=== PATIENT | female | born 1950 | race Caucasian/White ===

== ENCOUNTER → 2017-04-18 | Outpatient (CLI) | payer MEDICARE, OTHER, SELFPAY | PROVIDERS: Visit Provider Family Medicine | DX: R94.5 Abnormal results of liver function studies (principal) | CPT/HCPCS: 76705 ==

== ENCOUNTER → 2017-05-04 09:09 | Outpatient (CLI) | payer MEDICARE, OTHER, SELFPAY ==
--- NOTE | 2017-05-04 09:14 | MM_ITS ---
MM Dig screening mamm BI w/CAD REASON: SCREENING ORDERING PHYSICIAN: Anusha Acevedo MD PATIENT AGE: 66 years MM Dig screening mamm BI w/CAD CAD Screening COMPARISON: Digital mammograms 05/14/2014 and 05/01/2013 INDICATION: There is a history of breast cancer patient's great aunt diagnosed after menopause. TECHNIQUE: Standard CC and MLO images were obtained. R2 CAD reviewed. FINDINGS: The breasts are composed primarily of fat with minimal fibroglandular densities in the upper outer quadrants bilaterally. There are stable small nodular densities in each breast. There are multiple benign-appearing calcifications right breast with a few benign-appearing calcifications left breast. There is no new or suspicious lesion in either breast and there are no suspicious microcalcifications. IMPRESSION: Fibrofatty parenchyma with no suspicious lesion seen recommend yearly follow-up. BI-RADS Category: 2 Benign Finding(s) RECOMMENDED FOLLOW-UP: 1YR - 1 YEAR FOLLOW-UP (A letter has been sent to the patient regarding results of the study.)
== END ==
PROVIDERS: Family Provider Family Medicine; PCP Family Medicine; Visit Provider Family Medicine
DX: Z12.31 Encounter for screening mammogram for malignant neoplasm of breast (principal)
CPT/HCPCS: 77067

== ENCOUNTER 2017-06-11 09:00 | Outpatient (RCR) | payer MEDICARE, OTHER, SELFPAY | END 2017-06-11 09:01 | disposition home or self-care (01) | LOC: PT 09:00 | PROVIDERS: Family Provider Family Medicine; PCP Family Medicine; Visit Provider Family Medicine | DX: M54.5 Low back pain (principal) | CPT/HCPCS: 97010; 97014; 97110; G0283 ==

== ENCOUNTER → 2019-01-31 16:11 | Outpatient (CLI) | payer MEDICARE, OTHER, SELFPAY ==
--- NOTE | 2019-01-31 16:19 | MM_ITS ---
PROCEDURE: MM DIG SCREENING MAMM BI W/CAD CLINICAL INDICATION: SCREENING There is no personal or family history of breast cancer COMPARISON: [facility] DIG MAMM-SCREEN SHIRA from 05/01/2013 [facility] DIG MAMM-SCREEN SHIRA from 05/14/2014 [facility] MM Dig screening mamm BI w/CAD from 05/04/2017 TECHNIQUE: Standard CC and MLO images were obtained. R2 CAD reviewed. FINDINGS: Scattered fibroglandular densities are seen throughout both breasts. Stable areas of asymmetric glandular tissue are seen in the outer quadrants of each breast. There is scattered multiple benign-appearing microcalcifications in each breast more numerous right than left. There is a stable asymmetric nodular density near the axillary tail right breast likely a low-lying node. There is no suspicious lesion and no suspicious microcalcifications. IMPRESSION: Fibrofatty parenchyma with no suspicious lesions seen BI-RAD Category: 2 Benign Finding(s) FOLLOW-UP: 1YR 1 Year Follow-up (A letter has been sent to the patient regarding results of the study.) Dictated by: Dr. Manohar Randall MD 02/07/2019 09:[address] Manohar Randall MD in [place] 02/07/2019 09:09
== END ==
PROVIDERS: PCP Family Medicine; Visit Provider Family Medicine
DX: Z12.31 Encounter for screening mammogram for malignant neoplasm of breast (principal)
CPT/HCPCS: 77067

== ENCOUNTER → 2020-08-17 13:48 | Outpatient (CLI) | payer MEDICARE, SELFPAY ==
--- NOTE | 2020-08-17 13:51 | MM_ITS ---
PROCEDURE: MM DIG SCREENING MAMM BI W/CAD Digital Breast Tomosynthesis Included CLINICAL INDICATION: SCREENING There is a history of breast cancer patient's paternal aunt. COMPARISON: MG [facility] DIG MAMM-SCREEN SHIRA from 05/14/2014 MG [facility] MM Dig screening mamm BI w/CAD from 05/04/2017 MG MM DIG SCREENING MAMM BI W/CAD from 01/31/2019 TECHNIQUE: Standard CC and MLO images and 3D Tomosynthesis was obtained. R2 CAD reviewed. FINDINGS: Scattered fibroglandular densities are seen in both breasts. There are scattered benign-appearing microcalcifications in each breast more numerous right left. There is a stable benign-appearing asymmetric density upper-outer quadrant right breast. Again noted are asymmetric glandular elements in the upper outer quadrant of each breast. There is no new or suspicious lesion in either breast and no suspicious microcalcifications. IMPRESSION: Fibrofatty parenchyma with no suspicious lesions seen BI-RAD Category: 2 Benign Finding(s) FOLLOW-UP: 1YR 1 Year Follow-up (A letter has been sent to the patient regarding results of the study.) Dictated by: Dr. Manohar Randall MD 08/18/2020 16:24 Dr. Manohar Randall MD in [place] 08/18/2020 16:24
== END ==
PROVIDERS: PCP Family Medicine; Visit Provider Family Medicine
DX: Z12.31 Encounter for screening mammogram for malignant neoplasm of breast (principal)
CPT/HCPCS: 77063; 77067

== ENCOUNTER → 2020-08-20 09:46 | Outpatient (CLI) | payer MEDICARE, OTHER, SELFPAY ==
--- NOTE | 2020-08-20 09:49 | XR_ITS ---
PROCEDURE: XR DEXA AXIAL SKELETON CLINICAL HISTORY: OSTEOPENIA COMPARISON: No exams were available for comparison FINDINGS: The right hip BMD is 0.952 with a T-score of 0.9. The left hip BMD is with a T-score of . The lumbar spine BMD is 1.618 with a T-score of 5.2. Radius 1/3 density is 0.593 grams/centimeters sq with a T-score of -1.7 IMPRESSION: This patient is considered osteopenic according to the World Health Organization criteria. Bone density is between 10 and 25 percent below young normal. Fracture risk is moderate. Treatment is advised. Based on these results a follow-up exam is recommended in 2 year. Dictated by: Cain Robert MD 08/21/2020 09:02 Cain Robert MD in [place] 08/21/2020 09:02
== END ==
PROVIDERS: PCP Family Medicine; Visit Provider Family Medicine
DX: M85.89 Other specified disorders of bone density and structure, multiple sites (principal)
CPT/HCPCS: 77080

== ENCOUNTER → 2020-10-04 10:08 | Outpatient (CLI) | payer MEDICARE, OTHER, SELFPAY ==
--- NOTE | 2020-10-04 10:17 | XR_ITS ---
PROCEDURE: XR HIP RT 2-3V W/PELVIS CLINICAL INDICATION: RT HIP PAIN COMPARISON: No exams were available for comparison FINDINGS: Mild osteoarthritic changes are involving the right hip. No fracture or dislocation. No lytic or blastic change. There has been a prior total left hip prosthesis placed with good alignment. Minimal vascular calcification noted. Incidental note made of a small os acetabulum on the right IMPRESSION: Mild osteoarthritic change of the right hip. Dictated by: Cain Robert MD 10/04/2020 12:01 Cain Robert MD in [place] 10/04/2020 12:01
== END ==
PROVIDERS: PCP Family Medicine; Visit Provider Family Medicine
DX: M25.551 Pain in right hip (principal)
CPT/HCPCS: 73502

== ENCOUNTER → 2021-02-11 09:26 | Outpatient (CLI) | payer MEDICARE, OTHER, SELFPAY ==
[2021-02-11 09:33] LABS: Adenovirus F 40/41, stool Not Detected (NotDetected); Astrovirus Not Detected (NotDetected); Campylobacter Not Detected (NotDetected); Clostridium Difficile A/B, PCR Not Detected (NotDetected); Cryptosporidium Not Detected (NotDetected); Cyclospora Cayetanesis Not Detected (NotDetected); Entamoeba histolytica Not Detected (NotDetected); Enteroaggregative E coli Not Detected (NotDetected); Enteropathogenic E coli Not Detected (NotDetected); Enterotoxigenic E coli Not Detected (NotDetected); Giardia lamblia Not Detected (NotDetected); Norovirus Not Detected (NotDetected); Plesimonas Shigalloides, PCR Not Detected (NotDetected); Rotavirus A Not Detected (NotDetected); Salmonella, PCR Not Detected (NotDetected); Sapovirus Not Detected (NotDetected); Shiga-like toxin E coli Not Detected (NotDetected); Shigella Enterovasive E coli Not Detected (NotDetected); Vibrio Cholerae Not Detected (NotDetected); Vibrio, PCR Not Detected (NotDetected); Yersinia Entercolitica, PCR Not Detected (NotDetected)
== END ==
PROVIDERS: Visit Provider Family Medicine
DX: R19.7 Diarrhea, unspecified (principal)
CPT/HCPCS: 87506

== ENCOUNTER 2021-02-22 07:03 | Emergency (ER) | payer MEDICARE, OTHER, SELFPAY ==
[2021-02-22 07:39] VITALS: BP 148/84; PULSE 89; RESP 17; TEMP 36.8; O2SAT 97; BMI 31.8
--- NOTE | 2021-02-22 09:32 | PC.NURSE ---
Assisted Dr with exam of rectum.
--- NOTE | 2021-02-22 09:32 | HMH.EDGENADL ---
ED Disposition Clinical Impression: Hemorrhoids Qualifiers: Hemorrhoid type: unspecified Qualified Code(s): K64.9 - Unspecified hemorrhoids Disposition: Home, Self-Care Condition on Discharge: Good Referrals: Vivian Gudino [Primary Care Provider] - Deangelo Mackey MD [Staff Physician] - - Critical Care Critical Care Time: No Attestation: On 02/22/21, the high probability of a clinically significant, sudden or life threatening deterioration of the following system(s) required my full and direct attention, intervention and personal management. The time I documented below is in addition to time spent performing reported procedures but includes the following listed in this critical care notation. Medical Decision Making - Medical Records Medical records reviewed: Yes: I reviewed the patient's medical records. - Gideon Inquiry Pt receiving controlled substance: No Vital Signs: 02/22/21 07:39 Temperature 98.3 F Temperature Source Oral Pulse Rate [Right Radial] 89 Respiratory Rate 17 Blood Pressure [Right Arm] 148/84 H Blood Pressure Mean [Right Arm] 105 Blood Pressure Source [Right Arm] Automatic Cuff Blood Pressure Position [Right Arm] Sitting 02 Sat by Pulse Oximetry 97 Oxygen Delivery Method Room Air Medical Decision Narrative: Patient is a 70-year-old female presents the ED today for anal bleeding. Patient is well-appearing on initial evaluation fully conversant GCS 15 with normal mental status. Patient does not take any blood thinners. Patient examined, has several rectal hemorrhoids, the largest of which has a small hematoma overlying, there is no active bleeding, on further examination there is no anal fissure, the largest hemorrhoid may have partial thrombosis, but is not completely thrombosed. There is no active bleeding, patient is otherwise stable, we can refer for outpatient surgical follow-up, patient requests follow-up with Dr. Mackey. Believe that there is any indication for laboratory or further imaging work-up at this time, as patient is abdomen is nontender, and she has an obvious source of bleeding, if patient is to have continued or severe bleeding or melanotic stools, I discussed with her that she needs to return. Patient given return precautions return to the ED with any new or worsening symptoms and is verbalized understanding with this plan. General Adult HPI - General Chief complaint: PAIN Stated complaint: hemorrhoid bleed Time Seen by Provider: 02/22/21 09:10 Mode of Arrival: Ambulatory Limitations: No Limitations Description of Symptoms (Recalled from ER Triage Doc. by RN): Pt stated that she has had diarrhea for a month. The last two days were the first time she has had a solid stool. She has been bleeding since sunday. She stated that it started very light, and has esculated to very heavy and clotted. She has a hx of hemorrhoids. - History of Present Illness HPI narrative: Patient is a 70-year-old female presents the ED today for evaluation of rectal bleeding. Patient states this has been present since Sunday, states that it was very mild at that time that she has had diarrhea recently and has been wiping frequently, and attributes this to the worsening of her hemorrhoids. Patient states she has had hemorrhoids before but has not had any issues with them in the past, has been told that she has an anal cyst, but is unclear of where it is, and has been told that there is nothing to do at this time. She has a history of diverticulitis with partial colon resection. - Related Data Home Medications Medication Instructions Recorded Confirmed Citalopram Hydrobromide 20 mg PO DAILY 02/22/21 02/22/21 [Citalopram 20mg Tablet] Fenofibrate 160 mg PO DAILY 02/22/21 02/22/21 Levothyroxine Sodium 100 mcg PO DAILY 02/22/21 02/22/21 [Levothyroxine] Montelukast Sodium [Singulair 10mg 10 mg PO DAILY 02/22/21 02/22/21 tablet] Simvastatin 40 mg PO DAILY 02/22/21
[2021-02-22 09:33] VITALS: BP 130/84; PULSE 96; RESP 17; TEMP 36.8; O2SAT 96
[2021-02-22 09:48] VITALS: BP 130/84; PULSE 78; RESP 17; TEMP 36.8; O2SAT 97
== END 2021-02-22 09:50 | disposition home or self-care (01) ==
PROVIDERS: Emergency Provider Student in an Organized Health Care Education/Training Program; PCP Family Medicine
DX: K64.9 Unspecified hemorrhoids (principal); I10 Essential (primary) hypertension; E78.5 Hyperlipidemia, unspecified
CPT/HCPCS: 99281

== ENCOUNTER 2021-11-21 08:30 | Emergency (ER) | payer MEDICARE, OTHER, SELFPAY ==
[2021-11-21] VITALS (13 sets, daily range): BP systolic 127–143; BP diastolic 68–104; PULSE 66–82; RESP 16–18; TEMP 36.7–36.9; O2SAT 94–98; BMI 33.1
--- NOTE | 2021-11-21 08:28 | ECG_ITS ---
APPROVED REPORT Exam: Resting ECG HR:80 bpm ECG Measurements Heart Rate 80 AXES MD 161 P 71 QRSd 83 QRS 47 QT 388 T 67 QTc 425 Conclusion SINUS RHYTHM NORMAL ECG UNCONFIRMED REPORT Electronically signed by : Khanh Villalobos MD 11/22/2021 21:09:44
--- NOTE | 2021-11-21 08:39 | XR_ITS ---
FINAL REPORT CLINICAL HISTORY: chest pain FINDINGS: PA and lateral views of the chest were obtained. There is no prior exam for comparison. The cardiac and mediastinal silhouettes are within normal limits. There is granulomatous disease. There is no pleural effusion or pneumothorax. No acute osseous abnormality is identified. IMPRESSION: Granulomatous disease, otherwise no radiographic evidence of acute cardiac or pulmonary disease. Reviewed, Interpreted and Dictated by Valerie Corona MD Transcribed by Eliza Clements Authenticated and [facility]
--- NOTE | 2021-11-21 08:41 | PC.NURSE ---
ED MD AT BEDSIDE TO EVALUATE PT
--- NOTE | 2021-11-21 08:41 | PC.NURSE ---
[facility] at
--- NOTE | 2021-11-21 08:46 | PC.NURSE ---
pt to radiology
--- NOTE | 2021-11-21 08:48 | PC.NURSE ---
pt returned from radiology
[2021-11-21 08:53] LABS: Anion Gap 10.4 mEq/L (5-15); Blood Urea Nitrogen 13 mg/dl (7-17); Calcium 9.6 mg/dl (8.4-10.2); Carbon Dioxide 26 mmol/L (22.0-30.0); Chloride 108 mmol/L (98-107); Creatinine Clearance Estimated 69 mL/min (50-200); Estimated Glomerular Filt Rate 62 ml/min (>60); GFR (African American) 75 ML/MIN (>60); Glucose 102 mg/dl (74-100); Potassium 4.4 mmoL/L (3.5-5.1); Sodium 140 mmol/L (136-145)
[2021-11-21 08:54] LABS: Basophils # 0.1 K/mm3 (0-0.2); Basophils % 0.8 % (0.1-2.0); Eosinophils # 0.1 K/mm3 (0.0-0.4); Eosinophils % 1.4 % (0.1-12.0); Hemoglobin 15.4 g/dL (12.2-16.2); Lymphocytes # 3.6 K/mm3 (0.7-4.5); Lymphocytes % 49.9 % (10-50); Mean Corpuscular HGB Conc 35.1 g/dL (31.8-35.4); Mean Corpuscular Hemoglobin 31.8 pg (27.0-31.2); Mean Corpuscular Volume 90.5 fl (81-99); Monocytes # 0.5 K/mm3 (0.1-1.0); Monocytes % 6.7 % (1.7-9.3); Neutrophils # 2.9 K/mm3 (1.8-7.8); Neutrophils % 41.1 % (37.0-80.0); Platelet Count 331 K/mm3 (142-424); Red Blood Count 4.86 M/mm3 (4.20-5.40); Red Cell Distribution Width 13.6 % (11.5-17.5); White Blood Count 7.2 K/mm3 (4.8-10.8)
[2021-11-21 09:07] LABS: Alanine Aminotransferase 31 U/L (12-78); Albumin Level 4.5 g/dl (3.5-5.0); Alkaline Phosphatase 51 U/L (38-126); Aspartate Amino Transferase 35 U/L (14-36); Bilirubin,Indirect 0.2 mg/dL (0.0-0.9); Bilirubin,Total 0.2 mg/dl (0.2-1.3); Bilirubin,Unconjugated 0.5 mg/dL (0.0-1.1); Lipase 178 U/L (23-300); Total Protein,Serum 7.6 g/dl (6.3-8.2)
--- NOTE | 2021-11-21 09:08 | HMH.EDCP ---
ED Disposition Clinical Impression: Chest pain Qualifiers: Chest pain type: unspecified Qualified Code(s): R07.9 - Chest pain, unspecified Reflux esophagitis Qualifiers: Esophagitis bleeding: without hemorrhage Qualified Code(s): K21.00 - Gastro-esophageal reflux disease with esophagitis, without bleeding Disposition: Home, Self-Care Condition on Discharge: Good Prescriptions: Famotidine [Pepcid 20mg Tablet] 20 mg PO BID 14 Days #28 tab Transmission Status: Received by [facility] #[id number] Referrals: Vivian Gudino [Primary Care Provider] - - Critical Care Critical Care Time: No Attestation: On 11/21/21, the high probability of a clinically significant, sudden or life threatening deterioration of the following system(s) required my full and direct attention, intervention and personal management. The time I documented below is in addition to time spent performing reported procedures but includes the following listed in this critical care notation. Medical Decision Making - Medical Records Medical records reviewed: Yes: I reviewed the patient's medical records. - Gideon Inquiry Pt receiving controlled substance: No Vital Signs: 11/21/21 08:30 11/21/21 08:34 11/21/21 08:57 Temperature 98.5 F Temperature Source Oral Pulse Rate 78 67 Pulse Rate [Left Radial] 82 Respiratory Rate 16 Blood Pressure 127/68 Blood Pressure [Right Arm] 138/71 Blood Pressure Mean 87 Blood Pressure Mean [Right Arm] 93 Blood Pressure Source Blood Pressure Source [Right Arm] Automatic Cuff Blood Pressure Position Blood Pressure Position [Right Arm] Sitting 02 Sat by Pulse Oximetry 97 96 98 Oxygen Delivery Method Room Air Room Air 11/21/21 09:27 11/21/21 09:57 11/21/21 10:27 Temperature Temperature Source Pulse Rate 69 71 66 Pulse Rate [Left Radial] Respiratory Rate Blood Pressure 138/84 134/73 128/83 Blood Pressure [Right Arm] Blood Pressure Mean 102 93 92 Blood Pressure Mean [Right Arm] Blood Pressure Source Blood Pressure Source [Right Arm] Blood Pressure Position Blood Pressure Position [Right Arm] 02 Sat by Pulse Oximetry 95 95 97 Oxygen Delivery Method 11/21/21 10:57 11/21/21 11:27 11/21/21 12:47 Temperature Temperature Source Pulse Rate 73 78 79 Pulse Rate [Left Radial] Respiratory Rate Blood Pressure 135/81 143/82 H 135/104 H Blood Pressure [Right Arm] Blood Pressure Mean 99 94 113 Blood Pressure Mean [Right Arm] Blood Pressure Source Blood Pressure Source [Right Arm] Blood Pressure Position Blood Pressure Position [Right Arm] 02 Sat by Pulse Oximetry 98 98 97 Oxygen Delivery Method 11/21/21 12:52 11/21/21 12:57 11/21/21 13:27 Temperature Temperature Source Pulse Rate 68 72 66 Pulse Rate [Left Radial] Respiratory Rate Blood Pressure 133/79 135/79 131/68 Blood Pressure [Right Arm] Blood Pressure Mean 109 106 91 Blood Pressure Mean [Right Arm] Blood Pressure Source Blood Pressure Source [Right Arm] Blood Pressure Position Blood Pressure Position [Right Arm] 02 Sat by Pulse Oximetry 97 96 94 L Oxygen Delivery Method 11/21/21 13:30 Temperature 98.0 F Temperature Source Oral Pulse Rate 66 Pulse Rate [Left Radial] Respiratory Rate 18 Blood Pressure 131/68 Blood Pressure [Right Arm] Blood Pressure Mean Blood Pressure Mean [Right Arm] Blood Pressure Source Automatic Cuff Blood Pressure Source [Right Arm] Blood Pressure Position Sitting Blood Pressure Position [Right Arm] 02 Sat by Pulse Oximetry Oxygen Delivery Method Room Air - Lab Data Lab Results 11/21/21 08:35: WBC 7.2, RBC 4.86, Hgb 15.4, Hct 44.0, MCV 90.5, MCH 31.8 H, MCHC 35.1, RDW 13.6, Plt Count 331, MPV 7.0 L, Neut % (Auto) 41.1, Lymph % (Auto) 49.9, Avery % (Auto) 6.7, Eos % (Auto) 1.4, Baso % (Auto) 0.8, Neut # (Auto) 2.9, Lymph # (Auto) 3.6, Avery # (Auto) 0.5, Eos # (Auto) 0.1,
[2021-11-21 09:09] LABS: Troponin I < 0.01 ng/ml (0.00-0.034)
--- NOTE | 2021-11-21 09:10 | PC.NURSE ---
rounded on pt, pt sitting up in bed, pt family at BS. Pt states no needs at this time. Will continue to monitor
--- NOTE | 2021-11-21 09:42 | PC.NURSE ---
rounded on pt,asked pt if she needed anything, pt stated nothing at this time.
--- NOTE | 2021-11-21 11:26 | PC.NURSE ---
lab called asking if they needed to draw the second troponin for pt, Updated lab that the second one needs to be drawn. asked if they needed to send someone from lab to collect, instructed yes that they did
--- NOTE | 2021-11-21 11:58 | PC.NURSE ---
pt ambulated to restroom at this time
[2021-11-21 12:30] LABS: Troponin I < 0.01 ng/ml (0.00-0.034)
--- NOTE | 2021-11-21 12:36 | PC.NURSE ---
family updated on poc
--- NOTE | 2021-11-21 13:23 | PC.NURSE ---
pt states that her chest pain has improved
== END 2021-11-21 13:35 | disposition home or self-care (01) ==
PROVIDERS: Emergency Provider Student in an Organized Health Care Education/Training Program; PCP Family Medicine
DX: R07.9 Chest pain, unspecified (principal); K21.00 Gastro-esophageal reflux disease with esophagitis, without bleeding; Z79.899 Other long term (current) drug therapy; Z88.2 Allergy status to sulfonamides; Z88.6 Allergy status to analgesic agent; Z88.5 Allergy status to narcotic agent; Z91.040 Latex allergy status
CPT/HCPCS: 71046; 80048; 80076; 83690; 84484; 85025; 93005; 99283

== ENCOUNTER → 2021-12-16 11:16 | Outpatient (CLI) | payer MEDICARE, OTHER, SELFPAY ==
--- NOTE | 2021-12-16 11:24 | XR_ITS ---
FINAL REPORT CLINICAL HISTORY: hip pain COMPARISON: October 04, 2020 FINDINGS: RIGHT HIP Two views of the right hip with an AP pelvis demonstrate no acute fracture or dislocation. There are severe degenerative changes of the right hip which has significantly progressed since the prior exam. The visualized bony structures are well aligned. No soft tissue abnormality is seen. There are postoperative changes from left hip arthroplasty. There are moderate and severe degenerative changes of the lower lumbar spine. IMPRESSION: Severe degenerative changes with no acute bony abnormality. Reviewed, Interpreted and Dictated by Deangelo Collins III, MD Transcribed by Aparna Marquez Authenticated and [facility]
--- NOTE | 2021-12-16 11:24 | XR_ITS ---
FINAL REPORT CLINICAL HISTORY: knee pain FINDINGS: RIGHT KNEE: Four views of the right knee obtained. There is no acute fracture or dislocation. There is mild degenerative change that is worse in the medial compartment. There is no soft tissue abnormality. IMPRESSION: Mild degenerative change with no acute bony abnormality. Reviewed, Interpreted and Dictated by Deangelo Collins III, MD Transcribed by Aparna Maqruez Authenticated and [facility]
== END ==
PROVIDERS: PCP Family Medicine; Visit Provider Orthopaedic Surgery
DX: M25.551 Pain in right hip; M25.561 Pain in right knee
CPT/HCPCS: 73502; 73564

== ENCOUNTER → 2022-01-13 06:47 | Outpatient (CLI) | payer MEDICARE, OTHER, SELFPAY ==
--- NOTE | 2022-01-13 06:48 | CA_ITS ---
APPROVED REPORT EXAM: Comprehensive 2D, Doppler, and color-flow Echocardiogram Special Education Teachers: Briana Evans CRT Ht: 5 ft 3 in Wt: 193lbs BSA: 1.90 BP: 151/66 mmHg Indications: Chest Pain, Shortness of Breath, Hyperlipidemia, Hypertension/HDD,gerd 2D Dimensions LVOT 2.13 cm (M/F) 1.5-2.5 LA Volume 30.40 mL LA Volume Index 16.00 mL/m2 (M/F) 16-34 M-Mode Dimensions RVDd 2.63 cm (0.9-2.6) LA Diam 3.43 cm (1.9-4.0) LVDd 4.27 cm (3.5-5.7) Ao Diam 3.59 cm (2.0-3.7) LVDs 2.88 cm (3.5-5.7) IVSd 1.85 cm (0.6-1.1) PWd 0.61 cm (0.6-1.1) EF (Teich) 61.20% FS 32.60% EDV (Teich) 81.70 mL TAPSE 2.34 (<1.7) ESV (Teich) 31.70 mL LV Diastology E Decel Time 263.00 (160-240 msec) E/A Ratio 0.70 MED E' 4.90 (< 7 cm/sec) MED A' 9.50 cm/s E'/MED E' Ratio 11.90 (>14) LAT E' 8.10 (<10 cm/sec) LAT A' 7.00 cm/s E/LAT E' Ratio 7.20 (>14) Aortic Valve AO Peak GR. 6.50 mmHg Mitral Valve MV A Velocity 84.00 (40-130 cm/s) E/A Ratio 0.70 MV Decel. Time 263.00 (160-240 ms) Pulmonary Valve PV Peak Velocity 164.00 (50-150 cm/s) Tricuspid Valve TR P. Velocity 173.00 cm/s RAP Estimate 10.00 mmHg RVSP 21.90 mmHg Left Ventricle Left atrium is mildly enlarged, left ventricle is normal size, mild concentric left ventricular hypertrophy, estimated ejection fraction 55% with no regional wall motion abnormality, grade 1 diastolic dysfunction seen without tissue Doppler evidence of raise left atrial pressure. Right Ventricle Right atrium and right ventricle are normal size and contractility. Aortic Valve Aortic valve is minimally thickened and fibrosed there is no aortic stenosis or aortic insufficiency. Mitral Valve Mitral valve grossly normal, there is trace mitral regurgitation. Tricuspid Valve Tricuspid valve grossly normal, there is trace tricuspid regurgitation, tricuspid regurgitation jet velocity is inadequate for calculation of the right ventricular systolic pressure. Pulmonic Valve Pulmonic valve is poorly visualized. Great Vessels Aortic root is normal size. Inferior vena cava is normal 7 normal inspiratory collapse. Pericardium No significant pericardial effusion noted. Conclusion 1. Mildly enlarged left atrium, normal left ventricular size, mild concentric left ventricular hypertrophy, estimated ejection fraction 55% with no regional wall motion abnormality, grade 1 diastolic dysfunction seen without tissue Doppler evidence of raise left atrial pressure. 2. Trace mitral and tricuspid regurgitation. 3. No significant pericardial effusion noted. 4. Inferior vena cava is normal size with normal inspiratory collapse. Electronically signed by : Christopher Rogers MD 01/13/2022 09:59:47
--- NOTE | 2022-01-13 06:48 | NM_ITS ---
APPROVED REPORT Exam: Nuclear Stress Test Indication: HTN, HYPERLIPIDEMIA, FM HX., C.P. Patient Location: Outpatient Stress Tech: Rylie Martinez [place] Tech:SHELIA Sterling RT(R)(N) Ht: 5 ft 3 in Wt: 190 lbs Bra Size: 46DD HR: 68 bpm BP: 146/86 mmHg BSA: 1.89 m2 TID: 1.12 BMI: 33.6 History: HTN, HYPERLIPIDEMIA, FM HX., C.P. Procedure: Patient received a 0.4 mg of intravenous Lexiscan, resting heart rate 68 bpm, resting blood pressure 146/86 mmHg, with Lexiscan maximum heart rate achived was 105 bpm which is Less than 85 % of the maximum predicted heart rate and blood pressure was 168/91 mmHg. With Lexiscan, patient denied any complaint of chest pain. Electrocardiogram Resting electrocardiogram shows sinus rhythm nonspecific ST-T changes, with Lexiscan there is less than 1.[address] segment depression noted from the baseline EKG. The EKG portion of the Lexiscan is nondiagnostic. Cardiac Stress and Resting SPECT Images: Cardiac Stress and Resting SPECT images were obtained using technetium 99m Myoview 31.8 mCi stress and 10.49 mCi at rest. Gated SPECT analysis of segmental wall motion and calculation of the ejection fraction also done. Cardiac stress and rest SPECT images show a fixed defect anterior apically with normal contractility on gated SPECT is likely secondary to soft tissue attenuation, no reversible ischemia seen, computer derived ejection fraction is over 65% with no regional wall motion abnormality, right ventricle is normal size and contractility. Conclusion: 1. The EKG portion of the Lexiscan is nondiagnostic. 2. No scintigraphic evidence of reversible ischemia seen, computer derived ejection fraction is over 65% with no regional wall motion abnormality, right ventricle is normal size and contractility. 3. Likely normal Lexiscan Myoview study. Electronically signed by : Christopher Rogers MD 01/13/2022 10:58:01
--- NOTE | 2022-01-13 06:48 | CA_ITS ---
APPROVED REPORT Exam: Pharmacologic Technologist: Rylie Burton, Ht: 5 ft 3 in Wt: 192 lbs BSA: 1.90 m2 HR: 65 bpm BP: 146/86 mmHg Medical History Medications: Lisinopril,,,,, Levothyroxine,,,,, Simvastatin,,,,, Pantoprazole,,,,, Citalopram,,,,, FeNOfibrate,,,,, MonteKalast,,,,, Stress Test Details Test: LEXISCAN Reason for pharmacologic stress test: physical limitation. HR Resting HR: 68 bpm Max Heart Rate (APMHR): 148.709305 bpm Max HR Achieved: 106 bpm Target HR (85% APMHR): 125.357242 bpm % of APMHR: 71.62 Recovery HR: 79 bpm BP Resting BP: 146.0/86.0 mmHg Max BP: 168.0/91.0 mmHg Recovery BP: 159.0/79.0 mmHg ECG Resting ECG: SR Clinical Exercise duration: 04:00 min Highest Stage Achieved: Exercise capacity: 1.0 METs Stress ECG Conclusion Symptoms: weakness with Lexiscan. No CP or SOA. Arrhythmias/Ectopy: None. ST-T Changes: <1.5mm ST segment depression. Test Summary REST 12:20 . . 68 . 146/ 86 . . Stage 1 01:00 . . 105 . . . . Stage 2 01:00 . . 95 . 168/ 91 . . Stage 3 01:00 . . 88 . 144/ 80 . . Stage 4 01:00 . . 88 . 147/ 83 . Stop exercise at 04:00 RECOVERY 01:00 . . 81 . . . . RECOVERY 02:00 . . 76 . 144/ 76 . . RECOVERY 02:33 . . 79 . 159/ 79 . . Electronically signed by : Christopher Rogers MD 01/13/2022 10:54:55
== END ==
PROVIDERS: PCP Family Medicine; Visit Provider Nurse Practitioner Family
DX: E78.5 Hyperlipidemia, unspecified (principal); I10 Essential (primary) hypertension; K21.9 Gastro-esophageal reflux disease without esophagitis; R07.9 Chest pain, unspecified; R06.00 Dyspnea, unspecified
CPT/HCPCS: 78452; 93017; 93306; A9502; J2785

== ENCOUNTER → 2022-01-30 09:34 | Outpatient (CLI) | payer MEDICARE, OTHER, SELFPAY | PROVIDERS: PCP Family Medicine; Visit Provider Surgery | DX: Z01.812 Encounter for preprocedural laboratory examination (principal); Z20.822 Contact with and (suspected) exposure to COVID-19; Z13.810 Encounter for screening for upper gastrointestinal disorder | CPT/HCPCS: C9803; U0003; U0005 ==

== ENCOUNTER 2022-01-31 06:14 | Day surgery (SDC) | payer MEDICARE, OTHER, SELFPAY ==
[2022-01-27 15:58] VITALS: BMI 33.6
[2022-01-31] VITALS (7 sets, daily range): BP systolic 99–130; BP diastolic 67–76; PULSE 66–79; RESP 16–18; TEMP 36.1; O2SAT 97–98
--- NOTE | 2022-01-31 07:16 | EXP.ANES.CKL ---
PF[facility] COUNTS INCLUDE 234 BEDS AT THE [facility] Medical History Anxiety Colonoscopy planned Depression Dyspnea Fibromyalgia Hip replacement planned History of cataract History of COVID-19 History of gastroesophageal reflux (GERD) History of transient ischemic attack (TIA) Hyperlipidemia Hypertension Hypothyroid Migraine Ulcerative colitis Urinary tract infection Surgical History H/O: hysterectomy History of History of carpal tunnel release History of colon surgery Family History Mother Family history of Alzheimer's disease Grandfather Family history of stroke Family history of acute congestive heart failure Family history of cancer Grandmother Family history of acute congestive heart failure Family history of cancer Social History Smoking Status: Former smoker alcohol intake: never substance use type: denies use current occupational status: retired Travel in the last 8 weeks: None caffeine: Yes [facility] Anesthesia Checklist Patient Identification Patient Identification: Arm Band Structural Data Admitted From: Home Planned Operative Procedure/s: egd Consent for Planned Operative Procedure(s) Verified: Yes Verified Documents: Surgical Consent and History and Physical NPO Status Verified Time NPO: 00:00 Additional verifications Anesthesia Reactions: No Airway Assessment C-Spine Mobility Assessed: Yes TMJ Mobility Assessed: Yes Dentition: Good Dentition Neurological Assessment Level of Consciousness: Awake and Alert Anesthesia Plan Anesthesia Risk discussed: Yes Anesthesia Plan: Verified ASA Class: II Anesthesia Type: MAC
--- NOTE | 2022-01-31 07:32 | HMH.SCOPE ---
Procedure: Date: 01/31/22 Patient Date of :: 1950 Procedure Performed:: Esophagogastroduodenoscopy with biopsy Indications:: Gastroesophageal reflux Performing Provider:: Monster Alcocer MD Referring Provider:: . Sedation:: Monitored anesthesia care Procedure:: After informed consent was obtained the patient was taken to the endoscopy suite. Sedation ensued after the patient was transferred to the left lateral decubitus position. Pulse, blood pressure, and oxygen saturation were monitored throughout the procedure. The endoscope was advanced beyond the duodenal bulb. Retroflexion within the gastric lumen was accomplished. The gastroscope was carefully removed and the patient was transferred to recovery in stable condition. Please see findings and specimens below for detail. Findings:: Somewhat tortuous distal esophagus Gastroesophageal junction at 39 cm Small sliding hiatal hernia Bile reflux Mild to moderate gastritis distally Specimens:: Antral biopsy Recommendations:: Continue proton pump inhibition Follow-up pathology Consider barium swallow Complications:: No immediate Estimated blood obtained (mL): 1
== END 2022-01-31 08:18 | disposition home or self-care (01) ==
PROVIDERS: PCP Family Medicine; Visit Provider Surgery
PROC: 0DJ08ZZ Inspection of Upper Intestinal Tract, Via Natural or Artificial Opening Endoscopic (ICD-10-PCS; CPT 43235; principal; 2022-01-31 07:30)
DX: K21.9 Gastro-esophageal reflux disease without esophagitis (principal); K44.9 Diaphragmatic hernia without obstruction or gangrene; Z79.899 Other long term (current) drug therapy
CPT/HCPCS: 43239

== ENCOUNTER → 2022-02-10 10:39 | Outpatient (CLI) | payer MEDICARE, OTHER, SELFPAY ==
--- NOTE | 2022-02-10 10:39 | FL_ITS ---
FINAL REPORT CLINICAL HISTORY: dysphagia..reflux..bloating 4.47 fluoro time 36 images FINDINGS: UPPER GI WITH SBFT HISTORY: Anemia. Dysphagia. PROCEDURE: The patient ingested barium. Effervescent crystals were also administered. Spot and overhead films were obtained. Additional barium was administered for a SBFT. FLUOROSCOPY TIME: 4 minutes 47 seconds. 20 radiographs were obtained. FINDINGS: UGI: The esophagus is mildly dilated with esophageal dysmotility and a stricture of the distal esophagus just above the gastroesophageal junction. A 13 mm barium tablet does not pass through this region. There is no hiatal hernia. No gastroesophageal reflux was demonstrated during the exam. There are nonspecific prominent rugal folds. The stomach empties appropriately. Imaging of the duodenum is unremarkable. SBFT: The clinical resource nurse film is normal. There is no evidence of obstruction. The mucosal fold pattern is normal. The terminal ilium poorly visualized due to location but unremarkable. IMPRESSION: Dilated esophagus with esophageal dysmotility and distal esophageal stricture. Endoscopic correlation recommended. Unremarkable small bowel follow-through. Films reviewed , interpreted and dictated by Dr. Collins. Transcribed by Alessandro Gillespie PA-C. Reviewed, Interpreted and Dictated by Deangelo Collins III, MD Transcribed by AMADOR Ortiz Authenticated and [facility]
== END ==
PROVIDERS: PCP Family Medicine; Visit Provider Surgery
DX: K21.00 Gastro-esophageal reflux disease with esophagitis, without bleeding (principal)
CPT/HCPCS: 74220; 74246; 74248

== ENCOUNTER → 2022-12-14 16:04 | Outpatient (CLI) | payer MEDICARE, OTHER, SELFPAY ==
[2022-12-14 13:07] LABS: Chol/HDL Ratio 3.7 (1-3.5); Cholesterol 136 mg/dl (140-200); HDL Cholesterol 37 mg/dl (40-60); Triglycerides 161 mg/dl (30-150); VLDL Cholesterol 32 mg/dL (0-40)
[2022-12-14 13:18] LABS: Direct LDL Cholesterol 71.64 mg/dL (100-129)
== END ==
PROVIDERS: PCP Internal Medicine; Visit Provider Internal Medicine
DX: E78.1 Pure hyperglyceridemia (principal); E78.5 Hyperlipidemia, unspecified
CPT/HCPCS: 80061

== ENCOUNTER → 2023-01-08 09:01 | Outpatient (CLI) | payer MEDICARE, OTHER, SELFPAY ==
--- NOTE | 2023-01-08 09:01 | MM_ITS ---
PROCEDURE INFORMATION: Exam: MG Bilateral Screening 3D Mammography Exam date and time: 01/08/2023 8:59 AM Age: 72 years old Clinical indication: Screening mammogram TECHNIQUE: Imaging protocol: Bilateral Screening tomosynthesis and 2D mammography including computer-aided detection (CAD) when performed. COMPARISON: 1. MG MM DIG SCREENING MAMM BI W/CAD 08/17/2020 1:51 PM 2. MG MM DIG SCREENING MAMM BI W/CAD 01/31/2019 4:31 PM 3. MG SCBI MM Dig screening mamm BI w/CAD 05/04/2017 9:20 AM 4. MG DMSB DIG MAMM-SCREEN SHIRA 05/14/2014 8:34 AM FINDINGS: MAMMOGRAPHY: Breast composition: There are scattered areas of fibroglandular density. Mass: 1.1 cm mass within the upper outer posterior right breast , about 15-16 cm from the nipple, should be further assessed with ultrasound. Architectural distortion: No new or suspicious architectural distortion. Calcifications: Stable benign-appearing calcifications are present. No new or suspicious cluster of microcalcifications have developed. Asymmetric density: No new or suspicious asymmetric density is present Skin thickening: None. Axillary adenopathy: None. IMPRESSION: 1.1 cm mass within the upper outer posterior right breast , about 15-16 cm from the nipple, should be further assessed with ultrasound. ASSESSMENT: BI-RADS category 0: Incomplete-need additional imaging evaluation
--- NOTE | 2023-01-08 09:01 | XR_ITS ---
FINAL REPORT TECHNIQUE: Bone densitometry calculations of the lumbar spine and left hip were obtained. CLINICAL HISTORY: Recommended screen, previously [facility] 2yrs ago COMPARISON: 08/20/2020 FINDINGS: Using the right forearm, bone mineral density is 0.54 g/cm2, corresponding to T-score of -1.7, significantly worse from prior exam. Using L1-L4, the bone mineral density of the lumbar spine is 1.62 g/cm2, corresponding to T-score of 5.2 which is likely falsely elevated secondary to hypertrophic change. NOTE: T-score: Standard deviation compared with peak bone mass of young adult mean. *Following the recommendations of the International Society of Bone Densitometry, classification of hip BMD is based on the lower of two T-scores; total hip or femoral neck. IMPRESSION: Osteoporosis: Lowest T-score is at or below -2.5. This patient''s T-score meets the World Health Organization criteria for osteoporosis. Reviewed, Interpreted and Dictated by Deangelo Collins III, MD Transcribed by Silvia Christopher Authenticated and [facility]
== END ==
PROVIDERS: PCP Internal Medicine; Visit Provider Internal Medicine
DX: Z13.820 Encounter for screening for osteoporosis; Z12.31 Encounter for screening mammogram for malignant neoplasm of breast; Z78.0 Asymptomatic menopausal state
CPT/HCPCS: 77063; 77067; 77080

== ENCOUNTER → 2023-01-24 10:30 | Outpatient (CLI) | payer MEDICARE, OTHER, SELFPAY ==
--- NOTE | 2023-01-24 10:30 | US_ITS ---
PROCEDURE INFORMATION: Exam: US Right Breast, Complete Exam date and time: 01/24/2023 10:38 AM Age: 72 years old Clinical indication: Recall on the basis screening mammogram 01/08/2023 for sonographic evaluation of 1.1 cm mass within the upper outer posterior right breast , about 15-16 cm from the nipple. TECHNIQUE: Imaging protocol: Complete ultrasound of all four quadrants of the right breast and the retroareolar regions, including ultrasound of the axilla when performed. COMPARISON: MG MM DIG SCREENING MAMM BI W/CAD 01/08/2023 8:59 AM FINDINGS: Breast: Right sonography, all 4 quadrants, retroareolar and axilla. At 10 o'clock 12 cm from the nipple, complex mass with containing 0.5 cm masslike area with a camilo related Doppler flow measuring about 0.5 cm in the nondependent anterior aspect, overall measuring 0.8 x 1.0 x 0.7 cm, which appears to correspond to the mammographic mass. At 9 o'clock 7 cm from the nipple, probable complicated avascular cyst, perhaps a oil cyst, measuring 0.3 x 0.3 x 0.3 cm. Sonographically unremarkable axillary lymph node. IMPRESSION: Recommend ultrasound-guided biopsy of complex mass on the right at 10 o'clock, ensuring a sampling of the masslike anterior component, with differential including papillary cancer, and ensuring that sonographically placed clip corresponds to the mammographic mass. Probably benign complicated cyst at 9 o'clock, suggest six-month follow-up right sonography (management may be influenced by above recommended biopsy). ASSESSMENT: BI-RADS Category 4: Suspicious
== END ==
PROVIDERS: PCP Internal Medicine; Visit Provider Internal Medicine
DX: N63.41 Unspecified lump in right breast, subareolar (principal)
CPT/HCPCS: 76641

== ENCOUNTER → 2023-01-26 08:35 | Outpatient (CLI) | payer MEDICARE, OTHER, SELFPAY ==
--- NOTE | 2023-01-26 08:35 | US_ITS ---
FINAL REPORT CLINICAL HISTORY: RT BREASET NODULE 1000 -- Dr. Ronan Ames FINDINGS: ULTRASOUND-GUIDED RIGHT BREAST CORE BIOPSY TECHNIQUE: Limited images were obtained to localize region of interest. Solid nodule at 10:00 was noted. The right breast was prepped in a routine sterile fashion and locally anesthetized with 1% lidocaine. Standard written informed consent was obtained. The biopsy needle was positioned within the outer periphery of the lesion. A total of 4 passes were made with a 16 gauge core biopsy needle. A biopsy marker clip was deployed in satisfactory position. Postbiopsy mammogram showed postbiopsy changes with clip in satisfactory position. Procedure was well tolerated . CONCLUSION: 1. Technically successful ultrasound guided core biopsy of right breast lesion as above. 2. Biopsy marker clip deployed Histopathology reveals invasive ductal carcinoma. Surgical and medical oncologic follow-up recommended Authenticated and [facility]
--- NOTE | 2023-01-26 08:39 | MM_ITS ---
FINAL REPORT CLINICAL HISTORY: post bx FINDINGS: MAMMOGRAM RIGHT TECHNIQUE: Standard digital 2-D views COMPARISON: 01-08-23 DENSITY: There are scattered areas of fibroglandular density FINDINGS: Post biopsy marker clip is noted to be in satisfactory position. Postbiopsy changes are noted. Biopsy marker clip is noted within spiculated nodule at 9-10:00. IMPRESSION: Biopsy marker clip in good position RECOMMENDATION: Given findings of invasive ductal carcinoma, surgical and medical oncology follow-up recommended. Authenticated and [facility]
== END ==
PROVIDERS: PCP Internal Medicine; Visit Provider Internal Medicine
DX: N63.11 Unspecified lump in the right breast, upper outer quadrant
CPT/HCPCS: 19083; 77065; 88305; 88341; 88342; 88360

== ENCOUNTER → 2023-03-21 11:05 | Outpatient (CLI) | payer MEDICARE, OTHER, SELFPAY ==
[2023-03-21 11:52] LABS: Basophils # 0.1 K/mm3 (0-0.2); Basophils % 0.6 % (0.1-2.0); Eosinophils # 0.3 K/mm3 (0.0-0.4); Eosinophils % 2.8 % (0.1-12.0); Hematocrit 46.4 % (37.0-47.0); Hemoglobin 14.8 g/dL (12.2-16.2); Lymphocytes # 3.8 K/mm3 (0.7-4.5); Lymphocytes % 39.7 % (10-50); Mean Corpuscular HGB Conc 31.8 g/dL (31.8-35.4); Mean Corpuscular Hemoglobin 30.7 pg (27.0-31.2); Mean Corpuscular Volume 96.6 fl (81-99); Mean Platelet Volume 7.2 fl (7.4-10.4); Monocytes # 0.7 K/mm3 (0.1-1.0); Monocytes % 7.4 % (1.7-9.3); Neutrophils # 4.7 K/mm3 (1.8-7.8); Neutrophils % 49.5 % (37.0-80.0); Platelet Count 275 K/mm3 (142-424); Red Blood Count 4.81 M/mm3 (4.20-5.40); White Blood Count 9.5 K/mm3 (4.8-10.8)
[2023-03-21 12:29] LABS: Alanine Aminotransferase 27 U/L (12-78); Albumin Level 4.5 g/dl (3.5-5.0); Albumin/Globulin Ratio 1.7 (1.1-1.8); Alkaline Phosphatase 63 U/L (38-126); Anion Gap 10.7 mEq/L (5-15); Aspartate Amino Transferase 35 U/L (14-36); Bilirubin,Total 0.4 mg/dl (0.2-1.3); Blood Urea Nitrogen 8 mg/dl (7-17); Calcium 9.8 mg/dl (8.4-10.2); Carbon Dioxide 30 mmol/L (22.0-30.0); Chloride 103 mmol/L (98-107); Estimated Glomerular Filt Rate 70 ml/min (>60); GFR (African American) 85 ML/MIN (>60); Globulin 2.7 g/dL (1.3-3.2); Glucose 84 mg/dl (74-100); Potassium 4.7 mmoL/L (3.5-5.1); Sodium 139 mmol/L (136-145); Total Protein,Serum 7.2 g/dl (6.3-8.2)
== END ==
PROVIDERS: PCP Internal Medicine; Visit Provider Internal Medicine Medical Oncology
DX: D64.9 Anemia, unspecified (principal)
CPT/HCPCS: 36415; 80053; 85025

== ENCOUNTER 2023-04-05 10:10 | Outpatient (CLI) | payer MEDICARE, OTHER, SELFPAY ==
[2023-04-05] VITALS (9 sets, daily range): BP systolic 107–134; BP diastolic 62–78; PULSE 80–90; RESP 18; TEMP 37.2; O2SAT 99
--- NOTE | 2023-04-09 13:32 | DIET.NUTRFU ---
consulted secondary to 1st chemo dose. Spoke to Malia barth phone and see seemed to be feeling okay. Had some diarrhea last night, now resolved.encouraged good hydration. she claims appetite is good and wt is stable. According to hospital records wt was 86.6kg back in June of 2022 and now is 73kg. provided contact information if decided she needed anything else.
== END 2023-04-05 14:30 | disposition home or self-care (01) ==
LOC: INF 10:11
PROVIDERS: PCP Internal Medicine; Visit Provider Internal Medicine Medical Oncology
DX: Z51.11 Encounter for antineoplastic chemotherapy (principal); C50.411 Malignant neoplasm of upper-outer quadrant of right female breast; Z17.1 Estrogen receptor negative status [ER-]
CPT/HCPCS: 96413; 96415; J9070; J9171

== ENCOUNTER 2023-04-10 10:07 | Outpatient (CLI) | payer MEDICARE, OTHER, SELFPAY ==
[2023-04-10 10:13] VITALS: BMI 30.2
[2023-04-10 10:34] LABS: Basophils # 0.1 K/mm3 (0-0.2); Basophils % 0.8 % (0.1-2.0); Eosinophils % 0.6 % (0.1-12.0); Hematocrit 45.7 % (37.0-47.0); Hemoglobin 15.7 g/dL (12.2-16.2); Lymphocytes # 2.4 K/mm3 (0.7-4.5); Lymphocytes % 44.4 % (10-50); Mean Corpuscular HGB Conc 34.4 g/dL (31.8-35.4); Mean Corpuscular Hemoglobin 31.6 pg (27.0-31.2); Mean Corpuscular Volume 91.7 fl (81-99); Mean Platelet Volume 8.4 fl (7.4-10.4); Monocytes # 0.1 K/mm3 (0.1-1.0); Monocytes % 2.4 % (1.7-9.3); Neutrophils # 2.8 K/mm3 (1.8-7.8); Neutrophils % 51.9 % (37.0-80.0); Platelet Count 275 K/mm3 (142-424); Red Blood Count 4.98 M/mm3 (4.20-5.40); Red Cell Distribution Width 13.6 % (11.5-17.5); White Blood Count 5.4 K/mm3 (4.8-10.8)
[2023-04-10 10:43] LABS: Chloride 101 mmol/L (98-107); Potassium 4.3 mmoL/L (3.5-5.1); Sodium 137 mmol/L (136-145)
[2023-04-10 10:46] LABS: Alanine Aminotransferase 33 U/L (12-78); Albumin Level 4.5 g/dl (3.5-5.0); Albumin/Globulin Ratio 1.5 (1.1-1.8); Alkaline Phosphatase 52 U/L (38-126); Anion Gap 12.3 mEq/L (5-15); Aspartate Amino Transferase 35 U/L (14-36); Bilirubin,Total 0.6 mg/dl (0.2-1.3); Blood Urea Nitrogen 14 mg/dl (7-17); Calcium 9.6 mg/dl (8.4-10.2); Carbon Dioxide 28 mmol/L (22.0-30.0); Creatinine Clearance Estimated 59 mL/min (50-200); Estimated Glomerular Filt Rate 82 ml/min (>60); GFR (African American) 99 ML/MIN (>60); Glucose 121 mg/dl (74-100); Total Protein,Serum 7.5 g/dl (6.3-8.2)
[2023-04-10 11:15] VITALS: BP 131/76; PULSE 82; RESP 16; TEMP 36.9; O2SAT 97
[2023-04-10 12:15] VITALS: BP 118/69; PULSE 75; RESP 16; TEMP 36.9; O2SAT 97
== END 2023-04-10 12:15 | disposition home or self-care (01) ==
LOC: INF 10:09
PROVIDERS: PCP Internal Medicine; Visit Provider Internal Medicine Medical Oncology
DX: C50.911 Malignant neoplasm of unspecified site of right female breast (principal); R19.7 Diarrhea, unspecified; R53.1 Weakness; E86.0 Dehydration
CPT/HCPCS: 80053; 85025; 96360; 96375

== ENCOUNTER 2023-04-17 01:40 | Emergency (ER) | payer MEDICARE, OTHER, SELFPAY ==
[2023-04-17 01:42] VITALS: BP 150/118; PULSE 126; RESP 18; TEMP 37; O2SAT 97; BMI 29.2
--- NOTE | 2023-04-17 01:59 | XR_ITS ---
PROCEDURE INFORMATION: Exam: XR Chest Exam date and time: 04/17/2023 2:12 AM Age: 72 years old Clinical indication: Fever; Additional info: Fever, recent chemo TECHNIQUE: Imaging protocol: Radiologic exam of the chest. Views: 1 view. COMPARISON: CR XR CHEST 2V 11/21/2021 8:37 AM FINDINGS: Lungs: Stable calcified granuloma in the right mid lung. Pleural spaces: No evidence of pleural effusion, pneumothorax, or pleural thickening in the visualized pleural spaces. Heart/Mediastinum: Stable cardiac and mediastinal contours. Vasculature: There are calcifications of the aortic arch. Bones/joints: No evidence of acute osseous abnormalities within the visualized portions of the thoracic spine and ribs. Osseous structures appear appropriate for patient age. IMPRESSION: No dense parenchymal consolidation, pleural effusion, or pneumothorax.
[2023-04-17 02:00] VITALS: BP 124/79; PULSE 121; O2SAT 96
--- NOTE | 2023-04-17 02:01 | HMH.EDGENADL ---
Discharge Plan Disposition Patient Disposition: Home, Self-Care Prescriptions Prescriptions: No Action pantoprazole 40 mg tablet,delayed release (DR/EC) 40 mg PO DAILY PRN (Reason: GERD) lisinopril 10 mg tablet 10 mg PO DAILY simvastatin 40 mg tablet 40 mg PO DAILY calcium carbonate [Calcium 600] 600 mg calcium (1,500 mg) tablet 600 mg PO DAILY ascorbic acid (vitamin C) 1,000 mg capsule 2 g PO DAILY cholecalciferol (vitamin D3) 50 mcg (2,000 unit) capsule 100 mcg PO DAILY multivitamin Tablet 1 tab PO DAILY coenzyme Q10 [Co Q-10] 100 mg capsule 200 mg PO DAILY omega-3 fatty acids-fish oil [Fish Oil] 360-1,200 mg capsule 1 cap PO DAILY acetaminophen [Tylenol] 325 mg tablet 325 mg PO QID PRN (Reason: Pain (Scale Score 1-3)) potassium gluconate 595 mg (99 mg) tablet 595 mg PO DAILY levothyroxine 88 mcg tablet 88 mcg PO DAILY fenofibrate 160 mg tablet 160 mg PO DAILY Qty: 90 2RF citalopram 20 mg tablet 20 mg PO DAILY Qty: 90 0RF Referrals Follow up/Referrals: Estrada Carrizales DO [Primary Care Provider] - See instructions Activity Restrictions/Add. Instructions Additional Instructions/Restrictions: Please follow-up with your oncologist. Please follow-up with your primary care provider. Please return to the emergency department if you develop any new or worsening symptoms or become concerned for your health. Clinical Impressions Clinical Impression: Neutropenic fever, Rhinovirus infection, Tachycardia Discharge ED Provider: Brandon Mackey Adult HPI General Chief complaint: Fever Stated complaint: Fever,head congestion,body aches Time Seen by Provider: 04/17/23 01:48 Mode of Arrival: Ambulatory Source of Information: Patient and Spouse Limitations: No Limitations Description of Symptoms (Recalled from ER Triage Doc. by RN): Patient reports she had chemo 04/05 and yesterday around 10:30pm patient reports started having a fever with body aches, nasal congestion. Patient treated with nyquil and tylenol about 0030 and the on-call for her oncologist told her to come to the ER if her fever remained above 100 for greater than 30 minutes. Patient's oncologist is Dr. Davis. History of Present Illness HPI narrative: 70-year-old female, history of localized right breast cancer status post resection, recently started on chemotherapy, presents with fever congestion and malaise since Sunday. She reports that she was started on her first chemotherapy on 04/05. She went to a [employer] on Sunday and since then has felt unwell. Reports fever at home today despite Tylenol. Reports nasal congestion and generalized malaise, denies any specific chest pain shortness of breath abdominal pain. Related Data Home Medications Medication Instructions Recorded Confirmed acetaminophen 325 mg tablet 325 mg PO QID PRN Pain (Scale 12/14/22 04/17/23 (Tylenol) Score 1-3) ascorbic acid (vitamin C) 1,000 mg 2 g PO DAILY 12/14/22 04/17/23 capsule calcium carbonate 600 mg calcium 600 mg PO DAILY 12/14/22 04/17/23 (1,500 mg) tablet (Calcium) cholecalciferol (vitamin D3) 50 100 mcg PO DAILY 12/14/22 04/17/23 mcg (2,000 unit) capsule coenzyme Q10 100 mg capsule (Co 200 mg PO DAILY 12/14/22 04/17/23 Q-10) lisinopril 10 mg tablet 10 mg PO DAILY 12/14/22 04/17/23 multivitamin 1 tab PO DAILY 12/14/22 04/17/23 omega-3 fatty acids-fish oil 360 1 cap PO DAILY 12/14/22 04/17/23 mg-1,200 mg capsule (Fish Oil) potassium gluconate 595 mg (99 mg) 595 mg PO DAILY 12/14/22 04/17/23 tablet simvastatin 40 mg tablet 40 mg PO DAILY 12/14/22 04/17/23 pantoprazole 40 mg tablet,delayed 40 mg PO DAILY PRN GERD 12/21/22 04/17/23 release levothyroxine 88 mcg tablet 88 mcg PO DAILY 03/07/23 04/17/23 Previous Rx's Medication Instructions Recorded citalopram 20 mg tablet 20 mg PO DAILY #90 tabs 04/16/23 fenofibrate 160 mg tablet 160 mg PO DAILY #90 t
[2023-04-17 02:30] VITALS: BP 117/83; PULSE 117; O2SAT 96
[2023-04-17 02:48] LABS: Adenovirus,PCR Not Detected (NotDetected); Coronavirus 19, PCR Not Detected (NotDetected); Coronavirus 229E Not Detected (NotDetected); Coronavirus NL63 Not Detected (NotDetected); Coronavirus OC43 Not Detected (NotDetected); Coronovirus HKU1,PCR Not Detected (NotDetected); Human Metapneumovirus Not Detected (NotDetected); Influenza A, PCR Not Detected (NotDetected); Influenza AH1, 2009 Not Detected (NotDetected); Influenza AH1, PCR Not Detected (NotDetected); Influenza AH3,PCR Not Detected (NotDetected); Influenza B, PCR Not Detected (NotDetected); Parainfluenza 1, PCR Not Detected (NotDetected); Parainfluenza 2, PCR Not Detected (NotDetected); Parainfluenza 3, PCR Not Detected (NotDetected); Parainfluenza 4, PCR Not Detected (NotDetected); Respiratory Syncytial Virus Not Detected (NotDetected)
[2023-04-17 02:58] LABS: Alanine Aminotransferase 31 U/L (12-78); Alkaline Phosphatase 48 U/L (38-126); Aspartate Amino Transferase 32 U/L (14-36); Bilirubin,Total 0.4 mg/dl (0.2-1.3); Blood Urea Nitrogen 8 mg/dl (7-17); Carbon Dioxide 23 mmol/L (22.0-30.0); Chloride 102 mmol/L (98-107); Creatinine Clearance Estimated 57 mL/min (50-200); Estimated Glomerular Filt Rate 82 ml/min (>60); GFR (African American) 99 ML/MIN (>60)
[2023-04-17 02:59] LABS: Glucose 109 mg/dl (74-100); Magnesium 1.4 mg/dl (1.6-2.3)
[2023-04-17 03:00] VITALS: BP 104/65; PULSE 111; O2SAT 97
[2023-04-17 03:00] LABS: Albumin Level 4.2 g/dl (3.5-5.0); Albumin/Globulin Ratio 1.3 (1.1-1.8); Globulin 3.3 g/dL (1.3-3.2); Sodium 132 mmol/L (136-145); Total Protein,Serum 7.5 g/dl (6.3-8.2)
[2023-04-17 03:08] LABS: Basophils % 0.8 % (0.1-2.0); Eosinophils % 0.6 % (0.1-12.0); Hemoglobin 14.2 g/dL (12.2-16.2); Lymphocytes # 1.3 K/mm3 (0.7-4.5); Lymphocytes % 56.9 % (10-50); Mean Corpuscular HGB Conc 34.7 g/dL (31.8-35.4); Mean Corpuscular Hemoglobin 31.6 pg (27.0-31.2); Mean Corpuscular Volume 91.2 fl (81-99); Mean Platelet Volume 6.8 fl (7.4-10.4); Monocytes # 0.5 K/mm3 (0.1-1.0); Monocytes % 21.8 % (1.7-9.3); Neutrophils # 0.5 K/mm3 (1.8-7.8); Neutrophils % 19.9 % (37.0-80.0); Platelet Count 299 K/mm3 (142-424); Red Cell Distribution Width 13.4 % (11.5-17.5); White Blood Count 2.2 K/mm3 (4.8-10.8)
[2023-04-17 03:10] LABS: MANUAL DIFFERENTIAL MANUAL DIFFERENTIAL (MANUAL DIFF)
[2023-04-17 04:32] LABS: Microscopic, Urine URINE MICROSCOPIC (MICROSCOPIC)
[2023-04-17 04:40] LABS: Rhinovirus/Enterovirus Detected (NotDetected)
[2023-04-17 05:06] LABS: Appearance,Urine CLEAR (Clear); Bilirubin,Urine Negative (Negative); Blood, Urine Negative (Negative); Color,Urine YELLOW (Yellow); Glucose,Urine (UA) Negative (Negative); Ketones,Urine Negative (Negative); Leukocyte Esterase,Urine Negative (Negative); Nitrate,Urine Negative (Negative); Protein,Urine Negative (Negative); Urobilinogen,Urine 0.2 EU/dl (0.2)
[2023-04-17 05:07] LABS: Bacteria,Urine Trace /lpf; Mucus,Urine Trace /lpf; WBC,Urine Occasional #/hpf (0-3)
[2023-04-17 05:18] VITALS: BP 110/95; PULSE 111; RESP 17; TEMP 36.9; O2SAT 99
[2023-04-17 05:19] LABS: Lymphocytes % 80 % (10-50); Monocytes % 16 % (2-9); Neutrophils % 4 % (42-76); Total Cells Counted 25
[2023-04-17 05:20] LABS: Platelet Estimate Normal; RBC Morphology Normal
== END 2023-04-17 05:20 | disposition home or self-care (01) ==
PROVIDERS: Emergency Provider Emergency Medicine; PCP Internal Medicine
DX: D70.1 Agranulocytosis secondary to cancer chemotherapy (principal); R50.9 Fever, unspecified; R00.0 Tachycardia, unspecified; B34.8 Other viral infections of unspecified site; C50.911 Malignant neoplasm of unspecified site of right female breast; E78.5 Hyperlipidemia, unspecified; I10 Essential (primary) hypertension; E03.9 Hypothyroidism, unspecified; K51.90 Ulcerative colitis, unspecified, without complications
CPT/HCPCS: 71045; 80053; 81001; 83735; 85007; 85025; 87040; 87632; 87635; 96361; 96365; 99285

== ENCOUNTER 2023-04-26 08:44 | Outpatient (CLI) | payer MEDICARE, OTHER, SELFPAY ==
[2023-04-26] VITALS (8 sets, daily range): BP systolic 129–158; BP diastolic 47–90; PULSE 66–74; RESP 18; TEMP 36.8; O2SAT 97; BMI 30.2
[2023-04-26 09:08] LABS: Basophils % 0.2 % (0.1-2.0); Eosinophils % 0.1 % (0.1-12.0); Hematocrit 35.9 % (37.0-47.0); Hemoglobin 12.8 g/dL (12.2-16.2); Lymphocytes # 2.3 K/mm3 (0.7-4.5); Lymphocytes % 11.3 % (10-50); Mean Corpuscular HGB Conc 35.5 g/dL (31.8-35.4); Mean Corpuscular Hemoglobin 31.8 pg (27.0-31.2); Mean Corpuscular Volume 89.5 fl (81-99); Mean Platelet Volume 7.6 fl (7.4-10.4); Monocytes # 1.1 K/mm3 (0.1-1.0); Monocytes % 5.3 % (1.7-9.3); Neutrophils # 16.7 K/mm3 (1.8-7.8); Neutrophils % 83.2 % (37.0-80.0); Platelet Count 552 K/mm3 (142-424); Red Blood Count 4.01 M/mm3 (4.20-5.40); Red Cell Distribution Width 14.3 % (11.5-17.5)
[2023-04-26 09:24] LABS: Chloride 101 mmol/L (98-107); MANUAL DIFFERENTIAL MANUAL DIFFERENTIAL (MANUAL DIFF); Sodium 137 mmol/L (136-145)
[2023-04-26 09:26] LABS: Blood Urea Nitrogen 14 mg/dl (7-17); Creatinine Clearance Estimated 59 mL/min (50-200); Estimated Glomerular Filt Rate 70 ml/min (>60); GFR (African American) 85 ML/MIN (>60)
[2023-04-26 09:27] LABS: Alanine Aminotransferase 33 U/L (12-78); Albumin Level 4.5 g/dl (3.5-5.0); Albumin/Globulin Ratio 1.4 (1.1-1.8); Alkaline Phosphatase 51 U/L (38-126); Aspartate Amino Transferase 45 U/L (14-36); Bilirubin,Total 0.4 mg/dl (0.2-1.3); Calcium 9.5 mg/dl (8.4-10.2); Carbon Dioxide 26 mmol/L (22.0-30.0); Globulin 3.3 g/dL (1.3-3.2); Glucose 108 mg/dl (74-100); Total Protein,Serum 7.8 g/dl (6.3-8.2)
[2023-04-26 09:49] LABS: Lymphocytes % 12 % (10-50); Monocytes % 5 % (2-9); Neutrophils % 83 % (42-76); Platelet Estimate Moderate Increase; RBC Morphology Normal; Total Cells Counted 100
[2023-04-26] MEDS: LORATADINE 10MG TABLET 10 MG PO (10:04)
[2023-04-26] MEDS: DEXAMETHASONE 4MG TABLET 8 MG (10:04)
[2023-04-26] MEDS: ONDANSETRON 4MG ODT 16 MG (10:04)
[2023-04-26] MEDS: 0.9 % SODIUM CHLORIDE 50 ML 25 ML IV (10:04)
[2023-04-26] MEDS: DOCETAXEL IV (10:34)
[2023-04-26] MEDS: WATER IV (10:34)
[2023-04-26] MEDS: DEXTROSE 5% IV (10:34)
[2023-04-26] MEDS: CYCLOPHOSPHAMIDE IV (12:04)
[2023-04-26] MEDS: SODIUM CHLORIDE 0.9% IV (12:04)
== END 2023-04-26 13:00 | disposition home or self-care (01) ==
LOC: INF 08:45
PROVIDERS: PCP Internal Medicine; Visit Provider Internal Medicine Medical Oncology
DX: C50.911 Malignant neoplasm of unspecified site of right female breast (principal); Z51.11 Encounter for antineoplastic chemotherapy; Z45.2 Encounter for adjustment and management of vascular access device; Z17.1 Estrogen receptor negative status [ER-]
CPT/HCPCS: 80053; 85007; 85025; 96413; 96415; 96417; J9070; J9171

== ENCOUNTER 2023-05-17 08:36 | Outpatient (CLI) | payer MEDICARE, OTHER, SELFPAY ==
[2023-05-17 08:40] VITALS: BMI 30.7
[2023-05-17 09:06] LABS: Basophils % 0.2 % (0.1-2.0); Eosinophils % 0.1 % (0.1-12.0); Hematocrit 38.6 % (37.0-47.0); Hemoglobin 13.2 g/dL (12.2-16.2); Lymphocytes # 1.9 K/mm3 (0.7-4.5); Lymphocytes % 12.3 % (10-50); Mean Corpuscular HGB Conc 34.1 g/dL (31.8-35.4); Mean Corpuscular Volume 90.9 fl (81-99); Mean Platelet Volume 7.4 fl (7.4-10.4); Monocytes # 0.6 K/mm3 (0.1-1.0); Monocytes % 3.5 % (1.7-9.3); Neutrophils # 13.1 K/mm3 (1.8-7.8); Neutrophils % 83.8 % (37.0-80.0); Platelet Count 387 K/mm3 (142-424); Red Blood Count 4.25 M/mm3 (4.20-5.40); Red Cell Distribution Width 15.3 % (11.5-17.5); White Blood Count 15.6 K/mm3 (4.8-10.8)
[2023-05-17 09:08] LABS: Chloride 104 mmol/L (98-107); Potassium 3.5 mmoL/L (3.5-5.1); Sodium 139 mmol/L (136-145)
[2023-05-17 09:10] LABS: Blood Urea Nitrogen 15 mg/dl (7-17); Creatinine Clearance Estimated 60 mL/min (50-200); Estimated Glomerular Filt Rate 70 ml/min (>60); GFR (African American) 85 ML/MIN (>60)
[2023-05-17 09:11] LABS: Alanine Aminotransferase 31 U/L (12-78); Albumin Level 4.3 g/dl (3.5-5.0); Albumin/Globulin Ratio 1.5 (1.1-1.8); Alkaline Phosphatase 46 U/L (38-126); Anion Gap 13.5 mEq/L (5-15); Aspartate Amino Transferase 32 U/L (14-36); Bilirubin,Total 0.4 mg/dl (0.2-1.3); Calcium 9.5 mg/dl (8.4-10.2); Carbon Dioxide 25 mmol/L (22.0-30.0); Globulin 2.9 g/dL (1.3-3.2); Glucose 186 mg/dl (74-100); Total Protein,Serum 7.2 g/dl (6.3-8.2)
[2023-05-17 09:26] LABS: MANUAL DIFFERENTIAL MANUAL DIFFERENTIAL (MANUAL DIFF)
[2023-05-17] MEDS: ONDANSETRON 4MG ODT 16 MG (09:32)
[2023-05-17] MEDS: DEXAMETHASONE 4MG TABLET 8 MG (09:32)
[2023-05-17] MEDS: LORATADINE 10MG TABLET 10 MG PO (09:32)
[2023-05-17 09:53] LABS: Lymphocytes % 18 % (10-50); Monocytes % 3 % (2-9); Neutrophils % 79 % (42-76); Total Cells Counted 100
[2023-05-17 09:54] LABS: Platelet Estimate Normal; RBC Morphology Normal
[2023-05-17] MEDS: DEXTROSE 5% IV (10:00)
[2023-05-17] MEDS: WATER IV (10:00)
[2023-05-17] MEDS: DOCETAXEL IV (10:00)
[2023-05-17 10:05] VITALS: BP 125/70; PULSE 84; RESP 18; O2SAT 96
[2023-05-17] MEDS: 0.9 % SODIUM CHLORIDE 50 ML 100 ML IV (10:05)
[2023-05-17 10:40] VITALS: BP 122/79; PULSE 79; RESP 18
[2023-05-17 11:10] VITALS: BP 145/85; PULSE 73; RESP 18
[2023-05-17] MEDS: SODIUM CHLORIDE 0.9% IV (11:13)
[2023-05-17] MEDS: CYCLOPHOSPHAMIDE IV (11:13)
[2023-05-17 11:15] VITALS: BP 135/76; PULSE 78; RESP 18
[2023-05-17 11:55] VITALS: BP 149/86; PULSE 70; RESP 18; O2SAT 96
== END 2023-05-17 11:55 | disposition home or self-care (01) ==
LOC: INF 08:37
PROVIDERS: PCP Internal Medicine; Visit Provider Internal Medicine Medical Oncology
DX: Z51.11 Encounter for antineoplastic chemotherapy (principal); C50.411 Malignant neoplasm of upper-outer quadrant of right female breast; Z17.1 Estrogen receptor negative status [ER-]
CPT/HCPCS: 80053; 85007; 85025; 96413; 96415; 96417; J9070; J9171

== ENCOUNTER 2023-06-06 08:29 | Outpatient (CLI) | payer MEDICARE, OTHER, SELFPAY ==
[2023-06-06] VITALS (9 sets, daily range): BP systolic 111–134; BP diastolic 67–74; PULSE 69–81; RESP 18; TEMP 36.6; O2SAT 96; BMI 30.3
[2023-06-06 08:49] LABS: Basophils % 0.1 % (0.1-2.0); Eosinophils % 0.2 % (0.1-12.0); Hematocrit 38.5 % (37.0-47.0); Hemoglobin 12.9 g/dL (12.2-16.2); Lymphocytes # 1.7 K/mm3 (0.7-4.5); Lymphocytes % 13.2 % (10-50); Mean Corpuscular HGB Conc 33.4 g/dL (31.8-35.4); Mean Corpuscular Hemoglobin 31.2 pg (27.0-31.2); Mean Corpuscular Volume 93.4 fl (81-99); Mean Platelet Volume 7.4 fl (7.4-10.4); Monocytes # 0.4 K/mm3 (0.1-1.0); Monocytes % 3.1 % (1.7-9.3); Neutrophils # 10.6 K/mm3 (1.8-7.8); Neutrophils % 83.4 % (37.0-80.0); Platelet Count 332 K/mm3 (142-424); Red Blood Count 4.13 M/mm3 (4.20-5.40); Red Cell Distribution Width 15.9 % (11.5-17.5); White Blood Count 12.8 K/mm3 (4.8-10.8)
[2023-06-06 09:03] LABS: Chloride 105 mmol/L (98-107)
[2023-06-06 09:04] LABS: Potassium 3.9 mmoL/L (3.5-5.1); Sodium 139 mmol/L (136-145)
[2023-06-06 09:06] LABS: Alanine Aminotransferase 39 U/L (12-78); Anion Gap 11.9 mEq/L (5-15); Aspartate Amino Transferase 36 U/L (14-36); Blood Urea Nitrogen 16 mg/dl (7-17); Carbon Dioxide 26 mmol/L (22.0-30.0); Creatinine Clearance Estimated 60 mL/min (50-200); Estimated Glomerular Filt Rate 70 ml/min (>60); GFR (African American) 85 ML/MIN (>60)
[2023-06-06 09:07] LABS: Albumin Level 4.2 g/dl (3.5-5.0); Albumin/Globulin Ratio 1.6 (1.1-1.8); Alkaline Phosphatase 38 U/L (38-126); Bilirubin,Total 0.5 mg/dl (0.2-1.3); Calcium 9.6 mg/dl (8.4-10.2); Globulin 2.7 g/dL (1.3-3.2); Glucose 164 mg/dl (74-100); Total Protein,Serum 6.9 g/dl (6.3-8.2)
[2023-06-06] MEDS: ONDANSETRON 4MG ODT 16 MG (10:10)
[2023-06-06] MEDS: LORATADINE 10MG TABLET 10 MG PO (10:10)
[2023-06-06] MEDS: DEXAMETHASONE 4MG TABLET 8 MG (10:10)
[2023-06-06] MEDS: DOCETAXEL IV (10:36)
[2023-06-06] MEDS: WATER IV (10:36)
[2023-06-06] MEDS: DEXTROSE 5% IV (10:36)
[2023-06-06] MEDS: SODIUM CHLORIDE 0.9% IV (12:01)
[2023-06-06] MEDS: CYCLOPHOSPHAMIDE IV (12:01)
[2023-06-06] MEDS: SODIUM CHLORIDE 0.9% 50ML BAG 50 ML IV (13:00)
== END 2023-06-06 13:00 | disposition home or self-care (01) ==
LOC: INF 08:30
PROVIDERS: PCP Internal Medicine; Visit Provider Internal Medicine Medical Oncology
DX: C50.911 Malignant neoplasm of unspecified site of right female breast (principal); Z51.11 Encounter for antineoplastic chemotherapy; Z17.1 Estrogen receptor negative status [ER-]; Z79.899 Other long term (current) drug therapy
CPT/HCPCS: 80053; 85025; 96413; 96415; 96417; J9070; J9171

== ENCOUNTER 2023-07-04 14:25 | Outpatient (CLI) | payer MEDICARE, OTHER, SELFPAY ==
[2023-07-04 14:36] VITALS: BMI 30.5
[2023-07-04 14:58] LABS: Alanine Aminotransferase 22 U/L (12-78); Albumin/Globulin Ratio 1.7 (1.1-1.8); Alkaline Phosphatase 48 U/L (38-126); Anion Gap 9.7 mEq/L (5-15); Aspartate Amino Transferase 29 U/L (14-36); Bilirubin,Total 0.3 mg/dl (0.2-1.3); Blood Urea Nitrogen 15 mg/dl (7-17); Calcium 9.1 mg/dl (8.4-10.2); Carbon Dioxide 28 mmol/L (22.0-30.0); Chloride 107 mmol/L (98-107); Creatinine Clearance Estimated 60 mL/min (50-200); Estimated Glomerular Filt Rate 70 ml/min (>60); GFR (African American) 85 ML/MIN (>60); Globulin 2.4 g/dL (1.3-3.2); Glucose 93 mg/dl (74-100); Potassium 3.7 mmoL/L (3.5-5.1); Sodium 141 mmol/L (136-145); Total Protein,Serum 6.4 g/dl (6.3-8.2)
[2023-07-04 15:01] LABS: Basophils % 0.8 % (0.1-2.0); Eosinophils # 0.2 K/mm3 (0.0-0.4); Eosinophils % 3.3 % (0.1-12.0); Hematocrit 38.8 % (37.0-47.0); Hemoglobin 12.6 g/dL (12.2-16.2); Lymphocytes # 1.8 K/mm3 (0.7-4.5); Lymphocytes % 34.4 % (10-50); Mean Corpuscular HGB Conc 32.4 g/dL (31.8-35.4); Mean Corpuscular Hemoglobin 30.5 pg (27.0-31.2); Mean Corpuscular Volume 94.3 fl (81-99); Mean Platelet Volume 7.9 fl (7.4-10.4); Monocytes # 0.6 K/mm3 (0.1-1.0); Monocytes % 11.7 % (1.7-9.3); Neutrophils # 2.7 K/mm3 (1.8-7.8); Neutrophils % 49.8 % (37.0-80.0); Platelet Count 315 K/mm3 (142-424); Red Blood Count 4.11 M/mm3 (4.20-5.40); White Blood Count 5.3 K/mm3 (4.8-10.8)
== END 2023-07-04 14:45 | disposition home or self-care (01) ==
LOC: INF 14:26
PROVIDERS: PCP Internal Medicine; Visit Provider Internal Medicine Medical Oncology
DX: C50.911 Malignant neoplasm of unspecified site of right female breast (principal); Z17.1 Estrogen receptor negative status [ER-]
CPT/HCPCS: 36415; 80053; 85025

== ENCOUNTER 2023-07-26 09:02 | Outpatient (CLI) | payer MEDICARE, OTHER, SELFPAY ==
[2023-07-26 09:34] LABS: Basophils # 0.1 K/mm3 (0-0.2); Basophils % 1.3 % (0.1-2.0); Eosinophils # 0.3 K/mm3 (0.0-0.4); Eosinophils % 5.3 % (0.1-12.0); Hematocrit 41.5 % (37.0-47.0); Hemoglobin 13.3 g/dL (12.2-16.2); Lymphocytes # 1.1 K/mm3 (0.7-4.5); Lymphocytes % 21.4 % (10-50); Mean Corpuscular HGB Conc 32.1 g/dL (31.8-35.4); Mean Corpuscular Hemoglobin 31.4 pg (27.0-31.2); Mean Platelet Volume 7.5 fl (7.4-10.4); Monocytes # 0.4 K/mm3 (0.1-1.0); Monocytes % 7.9 % (1.7-9.3); Neutrophils # 3.3 K/mm3 (1.8-7.8); Platelet Count 288 K/mm3 (142-424); Red Blood Count 4.23 M/mm3 (4.20-5.40); Red Cell Distribution Width 17.5 % (11.5-17.5); White Blood Count 5.1 K/mm3 (4.8-10.8)
[2023-07-26 10:25] LABS: Alanine Aminotransferase 25 U/L (12-78); Albumin Level 4.3 g/dl (3.5-5.0); Alkaline Phosphatase 49 U/L (38-126); Aspartate Amino Transferase 32 U/L (14-36); Bilirubin,Direct 0.2 mg/dl (0.0-0.4); Bilirubin,Indirect 0.3 mg/dL (0.0-0.9); Bilirubin,Total 0.5 mg/dl (0.2-1.3); Bilirubin,Unconjugated 0.3 mg/dL (0.0-1.1); Blood Urea Nitrogen 11 mg/dl (7-17); Calcium 9.9 mg/dl (8.4-10.2); Carbon Dioxide 29 mmol/L (22.0-30.0); Chloride 107 mmol/L (98-107); Chol/HDL Ratio 5.5 (1-3.5); Cholesterol 159 mg/dl (140-200); Estimated Glomerular Filt Rate 70 ml/min (>60); GFR (African American) 85 ML/MIN (>60); Glucose 92 mg/dl (74-100); HDL Cholesterol 29 mg/dl (40-60); Magnesium 1.7 mg/dl (1.6-2.3); Sodium 142 mmol/L (136-145); Total Protein,Serum 6.8 g/dl (6.3-8.2); Triglycerides 265 mg/dl (30-150); VLDL Cholesterol 53 mg/dL (0-40)
[2023-07-26 10:36] LABS: Direct LDL Cholesterol 84.55 mg/dL (100-129)
[2023-07-26 10:42] LABS: Free T4 (Free Thyroxine) 1.53 ng/dl (0.78-2.19)
[2023-07-26 10:56] LABS: Thyroid Stimulating Hormone 0.02 uIU/mL (0.465-4.68)
[2023-07-26 11:44] LABS: D-Dimer 0.47 ug/mL (0.0-0.5)
== END 2023-07-26 23:59 ==
PROVIDERS: PCP Internal Medicine; Visit Provider Nurse Practitioner
DX: R00.0 Tachycardia, unspecified (principal); I10 Essential (primary) hypertension; E78.5 Hyperlipidemia, unspecified; K21.9 Gastro-esophageal reflux disease without esophagitis; C50.911 Malignant neoplasm of unspecified site of right female breast; Z79.899 Other long term (current) drug therapy
CPT/HCPCS: 36415; 80048; 80061; 80076; 83735; 84439; 84443; 85025; 85378

== ENCOUNTER 2024-01-22 14:13 | Outpatient (CLI) | payer MEDICARE, OTHER, SELFPAY ==
[2024-01-22 13:01] LABS: Basophils # 0.1 K/mm3 (0-0.2); Basophils % 0.9 % (0.1-2.0); Eosinophils # 0.1 K/mm3 (0.0-0.4); Eosinophils % 2.4 % (0.1-12.0); Hematocrit 44.7 % (37.0-47.0); Hemoglobin 14.6 g/dL (12.2-16.2); Lymphocytes # 2.1 K/mm3 (0.7-4.5); Lymphocytes % 39.2 % (10-50); Mean Corpuscular HGB Conc 32.6 g/dL (31.8-35.4); Mean Corpuscular Hemoglobin 32.4 pg (27.0-31.2); Mean Corpuscular Volume 99.3 fl (81-99); Monocytes # 0.4 K/mm3 (0.1-1.0); Monocytes % 7.9 % (1.7-9.3); Neutrophils # 2.7 K/mm3 (1.8-7.8); Neutrophils % 49.7 % (37.0-80.0); Platelet Count 330 K/mm3 (142-424); Red Blood Count 4.51 M/mm3 (4.20-5.40); White Blood Count 5.5 K/mm3 (4.8-10.8)
[2024-01-22 13:34] LABS: Albumin Level 4.6 g/dl (3.5-5.0); Chloride 105 mmol/L (98-107); Potassium 4.3 mmoL/L (3.5-5.1); Sodium 139 mmol/L (136-145)
[2024-01-22 13:36] LABS: Blood Urea Nitrogen 21 mg/dl (7-17); Estimated Glomerular Filt Rate 61 ml/min (>60); GFR (African American) 74 ML/MIN (>60)
[2024-01-22 13:37] LABS: Alanine Aminotransferase 27 U/L (12-78); Albumin/Globulin Ratio 1.7 (1.1-1.8); Alkaline Phosphatase 51 U/L (38-126); Anion Gap 9.3 mEq/L (5-15); Aspartate Amino Transferase 32 U/L (14-36); Bilirubin,Total 0.6 mg/dl (0.2-1.3); Calcium 10.2 mg/dl (8.4-10.2); Carbon Dioxide 29 mmol/L (22.0-30.0); Globulin 2.7 g/dL (1.3-3.2); Glucose 77 mg/dl (74-100); Total Protein,Serum 7.3 g/dl (6.3-8.2)
== END 2024-01-22 23:59 | disposition home or self-care (01) ==
LOC: LAB.DROPOF 14:13
PROVIDERS: PCP Internal Medicine; Visit Provider Internal Medicine
DX: C50.919 Malignant neoplasm of unspecified site of unspecified female breast (principal); Z00.00 Encounter for general adult medical examination without abnormal findings; E78.5 Hyperlipidemia, unspecified
CPT/HCPCS: 80053; 85025

== ENCOUNTER 2024-06-04 14:30 | Outpatient (CLI) | payer MEDICARE, OTHER, SELFPAY ==
[2024-06-04 14:59] LABS: Albumin Level 4.8 g/dl (3.5-5.0); Chloride 103 mmol/L (98-107); Potassium 4.5 mmoL/L (3.5-5.1); Sodium 139 mmol/L (136-145)
[2024-06-04 15:01] LABS: Blood Urea Nitrogen 19 mg/dl (7-17); Estimated Glomerular Filt Rate 70 ml/min (>60); GFR (African American) 85 ML/MIN (>60)
[2024-06-04 15:02] LABS: Alanine Aminotransferase 28 U/L (12-78); Albumin/Globulin Ratio 2.4 (1.1-1.8); Alkaline Phosphatase 41 U/L (38-126); Anion Gap 11.5 mEq/L (5-15); Aspartate Amino Transferase 34 U/L (14-36); Bilirubin,Total 0.4 mg/dl (0.2-1.3); Calcium 9.3 mg/dl (8.4-10.2); Carbon Dioxide 29 mmol/L (22.0-30.0); Cholesterol 150 mg/dl (140-200); Glucose 67 mg/dl (74-100); Total Protein,Serum 6.8 g/dl (6.3-8.2); Triglycerides 236 mg/dl (30-150); VLDL Cholesterol 47 mg/dL (0-40)
[2024-06-04 15:03] LABS: Chol/HDL Ratio 6.5 (1-3.5); HDL Cholesterol 23 mg/dl (40-60)
[2024-06-04 15:16] LABS: Direct LDL Cholesterol 87.32 mg/dL (100-129)
[2024-06-04 15:23] LABS: Free T4 (Free Thyroxine) 1.58 ng/dl (0.78-2.19)
[2024-06-04 15:35] LABS: Thyroid Stimulating Hormone 0.62 uIU/mL (0.465-4.68)
== END 2024-06-04 23:59 | disposition home or self-care (01) ==
LOC: LAB.DROPOF 14:30
PROVIDERS: PCP Internal Medicine; Visit Provider Internal Medicine
DX: E03.9 Hypothyroidism, unspecified (principal); E78.5 Hyperlipidemia, unspecified; R19.7 Diarrhea, unspecified; K21.9 Gastro-esophageal reflux disease without esophagitis; R13.10 Dysphagia, unspecified; Z92.3 Personal history of irradiation
CPT/HCPCS: 80053; 80061; 84439; 84443

== ENCOUNTER 2024-06-06 09:06 | Outpatient (CLI) | payer MEDICARE, OTHER, SELFPAY | END 2024-06-06 23:59 | disposition home or self-care (01) | LOC: LAB 09:08 | PROVIDERS: PCP Internal Medicine; Visit Provider Internal Medicine | DX: R19.7 Diarrhea, unspecified (principal) | CPT/HCPCS: 87045 ==

== ENCOUNTER 2024-06-18 08:00 | Outpatient (CLI) | payer MEDICARE, OTHER, SELFPAY ==
--- NOTE | 2024-06-18 08:01 | FL_ITS ---
FINAL REPORT CLINICAL HISTORY: Dysphagia DAP 1030.53 1.59 MIN FINDINGS: ESOPHAGRAM HISTORY: Dysphagia PROCEDURE: The patient ingested barium. Effervescent crystals were also administered. Fluoroscopic spot films were obtained. Fluoro time: 1 minute 59 seconds DAP: 1030.53 uGy.m2 FINDINGS: The esophagus is mildly dilated with relative narrowing at the gastroesophageal junction. There was slightly delayed passage of the barium tablet through this region. There is no hiatal hernia. No gastroesophageal reflux was demonstrated during the exam. Marked esophageal dysmotility was demonstrated during the exam. IMPRESSION: Mildly dilated esophagus with relative narrowing at the gastroesophageal junction. Consider EGD. Marked esophageal dysmotility. Films reviewed , interpreted and dictated by Dr. Valerie Corona. Transcribed by Alessandro Gillespie PA-C. Reviewed, Interpreted and Dictated by Valerie Corona MD Transcribed by AMADOR Ortiz Authenticated and . [facility]
[2024-06-18] MEDS: BARIUM SULFATE(E-Z-AC);750ML BOTTLE 750 ML PO (08:55)
[2024-06-18] MEDS: E-Z-GASII EFFERVESCENT GRANULES;1PK 1 EACH PO (08:56)
[2024-06-18] MEDS: BARIUM SULFATE (E-Z-HD 340GM);135ML BOTTLE 135 ML PO (08:56)
== END 2024-06-18 23:59 | disposition home or self-care (01) ==
LOC: RAD 08:01
PROVIDERS: PCP Internal Medicine; Visit Provider Internal Medicine
DX: R13.10 Dysphagia, unspecified (principal); Z92.3 Personal history of irradiation
CPT/HCPCS: 74220

== ENCOUNTER 2024-07-02 15:36 | Outpatient (CLI) | payer MEDICARE, OTHER, SELFPAY ==
[2024-07-04 13:10] LABS: Calprotectin, Fecal 124 ug/g (0-120)
== END 2024-07-02 23:59 | disposition home or self-care (01) ==
LOC: LAB 15:37
PROVIDERS: PCP Internal Medicine; Visit Provider Nurse Practitioner Family
DX: R19.7 Diarrhea, unspecified (principal)
CPT/HCPCS: 83993; 87493

== ENCOUNTER 2024-08-21 12:08 | Outpatient (CLI) | payer MEDICARE, OTHER, SELFPAY | END 2024-08-21 23:59 | disposition home or self-care (01) | LOC: LAB.DROPOF 08-22 10:20 | PROVIDERS: PCP Internal Medicine; Visit Provider Internal Medicine | DX: J02.9 Acute pharyngitis, unspecified (principal) | CPT/HCPCS: 87070 ==

== ENCOUNTER 2024-09-03 06:18 | Day surgery (SDC) | payer MEDICARE, OTHER, SELFPAY ==
[2024-08-27 13:49] VITALS: BMI 33.8
[2024-09-03 07:24] VITALS: BP 137/69; PULSE 75; RESP 18; TEMP 36.3; O2SAT 98
[2024-09-03] MEDS: LACTATED RINGERS 1000ML 1,000 ML 50 ML IV (07:34)
--- NOTE | 2024-09-03 07:39 | P.PNANES_ITS ---
[facility] Disclaimer: The information contained in this section may have been updated after the patient was seen, as this information can be updated by other users. Medical History Hx of breast cancer History of fracture of tibia FH: bilateral hip replacements Hypothyroidism GERD (gastroesophageal reflux disease) Hyperlipidemia Hypertension Colonoscopy planned Hip replacement planned Urinary tract infection History of COVID-19 History of transient ischemic attack (TIA) Migraine Anxiety Depression Fibromyalgia Ulcerative colitis History of gastroesophageal reflux (GERD) History of cataract Hypothyroid Hyperlipidemia Hypertension Dyspnea Surgical History H/O lymph node biopsy H/O lumpectomy History of lumpectomy of right breast History of esophagogastroduodenoscopy (EGD) History of carpal tunnel release History of colon surgery History of H/O: hysterectomy Family History (Updated 09/03/24 @ 07:30 by Lary Gonzalez RN) Mother Family history of Alzheimer's disease Grandfather Family history of acute congestive heart failure Family history of stroke Family history of cancer Grandmother Family history of acute congestive heart failure Family history of cancer Father Hypertension Mother Dementia Other Cancer Prostate cancer Social History (Updated 09/03/24 @ 07:31 by Lary Gonzalez RN) Smoking Status: Former smoker alcohol intake: never substance use type: denies use current occupational status: retired Travel in the last 8 weeks?: None caffeine: Yes Have you lived/traveled outside [place] in past 30 days?: No Contact w/someone who lives/traveled outside US past 30 days?: No Exposure to someone with infectious disease in past 14 days?: No Do you have a fever (greater than 100.4 F or 38 C)?: No Have you tested positive for COVID-19?: No Exposed to someone with COVID-19 in past 14 days?: No Do you have a sore throat?: No Do you have a cough?: No Do you have any weakness?: No Are you experiencing any nausea/vomitting?: No Do you have any diarrhea?: No Are you experiencing any unusual bleeding?: No Do you have any muscle aches/pain?: No Do you have any abdominal pain?: No Are you experiencing loss of taste or smell?: No [facility] Anesthesia Checklist Patient Identification Patient Identification: Arm Band Structural Data Admitted From: Home Planned Operative Procedure/s: EGD/Colonoscopy Consent for Planned Operative Procedure(s) Verified: Yes Verified Documents: Surgical Consent and History and Physical NPO Status Verified Time NPO: 04:00 (finished prep) Additional verifications Anesthesia Reactions: No Airway Assessment Mallampati Score:: Class II C-Spine Mobility Assessed: Yes TMJ Mobility Assessed: Yes Dentition: Good Dentition Neurological Assessment Level of Consciousness: Awake, Alert and Appropriate Anesthesia Plan Anesthesia Risk discussed: Yes Anesthesia Plan: Verified ASA Class: II Anesthesia Type: MAC
--- NOTE | 2024-09-03 07:44 | P.HP_ITS ---
History of Present Illness *Admission Date: 09/03/24 *Reason for visit:: GERD/history of radiation now with dysphagia and urgen cy/diarrhea *History of present illness: Mrs. Bowen is a 73-year-old female who is here for diagnostic panendoscopy. The patient has had diarrhea, urgency, change in bowel habits. She also has GERD with regurgitation and history of radiation esophagitis now with dysphagia. The examination is deemed medically necessary for diagnostic EGD and colonoscopy. The patient has been seen, interviewed and examined prior to the procedure by both myself and the anesthesia provider. [facility] Disclaimer: The information contained in this section may have been updated after the patient was seen, as this information can be updated by other users. Medical History Hx of breast cancer History of fracture of tibia FH: bilateral hip replacements Hypothyroidism GERD (gastroesophageal reflux disease) Hyperlipidemia Hypertension Colonoscopy planned Hip replacement planned Urinary tract infection History of COVID-19 History of transient ischemic attack (TIA) Migraine Anxiety Depression Fibromyalgia Ulcerative colitis History of gastroesophageal reflux (GERD) History of cataract Hypothyroid Hyperlipidemia Hypertension Dyspnea Surgical History H/O lymph node biopsy H/O lumpectomy History of lumpectomy of right breast History of esophagogastroduodenoscopy (EGD) History of carpal tunnel release History of colon surgery History of H/O: hysterectomy Family History (Updated 09/03/24 @ 07:30 by Lary Gonzalez RN) Mother Family history of Alzheimer's disease Grandfather Family history of acute congestive heart failure Family history of stroke Family history of cancer Grandmother Family history of acute congestive heart failure Family history of cancer Father Hypertension Mother Dementia Other Cancer Prostate cancer Social History (Updated 09/03/24 @ 07:31 by Lary Gonzalez RN) Smoking Status: Former smoker alcohol intake: never substance use type: denies use current occupational status: retired Travel in the last 8 weeks?: None caffeine: Yes Have you lived/traveled outside US in past 30 days?: No Contact w/someone who lives/traveled outside US past 30 days?: No Exposure to someone with infectious disease in past 14 days?: No Do you have a fever (greater than 100.4 F or 38 C)?: No Have you tested positive for COVID-19?: No Exposed to someone with COVID-19 in past 14 days?: No Do you have a sore throat?: No Do you have a cough?: No Do you have any weakness?: No Are you experiencing any nausea/vomitting?: No Do you have any diarrhea?: No Are you experiencing any unusual bleeding?: No Do you have any muscle aches/pain?: No Do you have any abdominal pain?: No Are you experiencing loss of taste or smell?: No Other Medical History Have you received the Flu Vaccine for this season: Yes Have you received the Pneumonia Vaccine: Yes Review of Systems Review of Systems Review of systems (narrative): Negative *Cardiovascular Comments: Negative *Gastrointestinal Comments: Negative *Genitourinary Comments: Negative *Musculoskeletal Comments: Negative *Neurologic Comments: Negative Meds Home Medications and Allergies Home Medications ?Medication ?Instructions ?Recorded ?Confirmed ?Type acetaminophen 325 mg tablet 325 mg PO QID PRN Pain (Scale 12/14/22 09/03/24 History (Tylenol) Score 1-3) ascorbic acid (vitamin C) 1,000 mg 2 g PO DAILY 12/14/22 09/03/24 History capsule calcium carbonate (Calcium 600) 600 mg PO DAILY 12/14/22 09/03/24 History coenzyme Q10 100 mg capsule (Co 200 mg PO DAILY 12/14/22 09/03/24 History Q-10) multivitamin 1 tab PO DAILY 12/14/22 09/03/24 History potassium gluconate 595 mg (99 mg) 595 mg PO DAILY 12/14/22 09/03/24 History tablet simvastatin 40 mg tablet 40 mg PO DAILY 12/14/22 09/03/24 History pantoprazole 40 mg tablet,delayed 40 mg PO DAILY PRN GERD 12/21/22 09/03/24 History release levothyroxine 88 mcg tablet 88 mcg PO DAILY 03/07/23 09/03/24 History cetirizine 10 mg tablet (Zyrtec) 10 mg PO DAILY 08/23/23 09/03/24 History cholecalciferol (vitamin D3) 50 50 mcg PO DAILY 08/23/23 09/03/24 History mcg (2,000 unit) capsule omega-3 fatty acids-fish oil 360 1 cap PO BID 08/23/23 09/03/24 History mg-1,200 mg capsule (Fish Oil) bisoprolol fumarate 5 mg tablet 2.5 mg (1/2 x 5 mg) PO DAILY #90 05/15/24 09/03/24 Rx tabs lisinopril 10 mg tablet 10 mg PO DAILY #90 tabs 05/15/24 09/03/24 Rx vitamin E mixed 400 unit capsule 0 unit PO DAILY 07/02/24 09/03/24 History fenofibrate 160 mg tablet See Rx Instructions .Route 07/08/24 09/03/24 Rx .COMPLEX #90 tabs sodium,potassium,mag sulfates 17.5 See Rx Instructions PO .COMPLEX 08/20/24 09/03/24 Rx gram-3.13 gram-1.6 gram oral soln #354 mL (Suprep Bowel Prep Kit) citalopram 20 mg tablet 20 mg PO DAILY 09/03/24 09/03/24 History New Prescriptions to Start Prescriptions: Allergies Allergy/AdvReac Type Severity Reaction Status Date / Time morphine Allergy Severe Anaphylaxis Verified 09/03/24 07:37 contact metal agent Allergy Intermediate Rash Verified 09/03/24 07:14 Latex, Natural Rubber Allergy Intermediate Rash Verified 09/03/24 07:14 glycopyrrolate (From ROBINUL) Allergy Unknown Rash Verified 09/03/24 07:14 Sulfa (Sulfonamide Allergy Unknown Vomiting Verified 09/03/24 07:14 Antibiotics) (SULFA (SULFONAMIDE ANTIBIOTICS)) acetaminophen (From Lortab) Allergy Rash Verified 09/03/24 07:37 codeine Allergy Rash Verified 09/03/24 07:37 hydrocodone (From Lortab) Allergy Rash Verified 09/03/24 07:37 Exam Data for Last 24 hours Vital signs and Labs for Last 24 Hours: Temp Pulse Resp BP Pulse Ox O2 Del Method 97.3 F L 75 18 137/69 98 Room Air 09/03/24 07:24 09/03/24 07:24 09/03/24 07:24 09/03/24 07:24 09/03/24 07:24 09/03/24 07:24 *Routine HEENT Exam Head: Present normocephalic Eye: Present EOMI and PERRL ENT: Present mucous membranes moist *Routine Neck Exam Neck: Present supple *Routine Respiratory Exam Respiratory: Present CTA bilaterally *Routine Cardiovascular Exam Cardiovascular: Present RRR *Routine Abdominal Exam Abdominal: Present soft and normoactive bowel sounds; Absent tenderness *Routine Rectal Exam Rectal:: deferred *Routine Genitalia Exam Genitalia:: deferred *Routine Extremities Exam Extremities: Absent cyanosis, clubbing or edema *Routine Skin Exam Skin: Present warm; Absent rash *Routine Neurological Exam Neurological: Present alert and oriented X3 Assessment and Plan *Assessment and plan (1) Diarrhea: Status: Acute Category: Medical Code(s): R19.7 - Diarrhea, unspecified (2) Regurgitation of stomach contents: Status: Acute Category: Medical Code(s): R11.10 - Vomiting, unspecified (3) Nocturnal diarrhea: Status: Acute Category: Medical Code(s): R19.7 - Diarrhea, unspecified (4) Dilatation of esophagus: Status: Acute Category: Medical Code(s): K22.89 - Other specified disease of esophagus (5) GERD (gastroesophageal reflux disease): Status: Acute Category: Medical Code(s): K21.9 - Gastro-esophageal reflux disease without esophagitis (6) History of radiation therapy: Status: Acute Category: Medical Code(s): Z92.3 - Personal history of irradiation Plan A/P: 1. GERD with food regurgitation and history of radiation esophagitis for upper endoscopy and diarrhea with urgency and change in bowel habits for colonoscopy is the preprocedural diagnosis. The patient will be anestheti zed/sedated using MAC sedation. The patient has been seen and examined. Cardiac and lung assessment prior to the examination is stable. Proceed with planned diagnostic EGD and colonoscopy.
[2024-09-03 07:50] VITALS: O2SAT 99
--- NOTE | 2024-09-03 07:53 | P.PCN_ITS ---
[facility] Procedure Note Date: 09/03/24 Time: 08:04 Procedure Note:: Upper Endoscopy Procedure Report: Esophagogastroduodenoscopy with cold biopsies and TTS balloon dilation Endoscopost: Maxime Ortiz II, MD Referring Physician: Estrada Carrizales DO Date of Procedure: September 03, 2024 Equipment: Olympus GIF 190 standard upper endoscope Sedation: MAC sedation Indications: Mrs. Bowen is a 73-year-old female who has been having food regurgitation, belching, bloating and gassiness. She also reports globus sensation with thick mucus in her throat. She reports no nausea or early satiety. She does have a history of complicated diverticulitis and had sigmoid resection (Deangelo Mackey) greater than 10 years ago. She also reports a history of ulcerative colitis many years ago. Her maternal grandmother had gastric cancer in her 70s. She has been on pantoprazole lately but reports worsening reflux and regurgitation. Her barium swallow showed a mildly dilated esophagus and tapering to the GE junction with marked esophageal dysmotility. The patient has improved with dietary measures. She reports no dysphagia. Procedure: Prior to the procedure, a history and physical exam was performed, and patient's medications and allergies were reviewed. The risks, benefits and alternatives o f the sedation and procedure were discussed with the patient. All questions were answered and informed consent was obtained. The patient was brought to the procedure room. Patient identification and proposed procedure were verified by the physician and the nurse. The patient was placed in a left lateral decubitus position and the scope was passed under direct vision. Throughout the procedure, the patient's blood pressure, pulse, and oxygen saturations were monitored continuously. The upper GI endoscopy was accomplished without difficulty. The patient tolerated the procedure well. Findings: The scope was passed directly into the upper esophagus and advanced to the fourth portion of duodenum and proximal jejunum. Cold biopsies were obtained from the proximal jejunum to be sent for disaccharidase assay. The post bulbar duodenum and duodenal bulb were normal with normal mucosa and conniventes. There was a small 4 mm nodule in the duodenal bulb that was biopsied and appeared to be submucosal. The scope was withdrawn through a normal pylorus into the stomach. There was bile reflux with moderate linear reactive gastropathy of the antrum. Biopsies were taken from the antrum. The body and fundus of the stomach were grossly normal. Upon retroflexion there was no hiatal hernia. The scope was then withdrawn into the esophagus. There was no evidence of reflux esophagitis or Cosby's. There were very strong tertiary contractions and evidence of moderate to marked esophageal dysmotility. The entire esophagus was dilated to 60 Maldivian/20 mm with a TTS hydrostatic balloon. There was mild resistance at the cricopharyngeus. The remainder of the esophageal mucosa was normal. Impression: 1. Cricopharyngeal spasm status post dilation to 20 mm 2. Nonerosive GERD with moderate to marked esophageal dysmotility 3. Bile reflux with moderate linear antral reactive gastropathy 4. Small 4 mm duodenal bulb nodule (submucosal) status post biopsy Plan: I will follow-up the biopsies. 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 We will discuss dietary measures and treatment options. I will proceed with diagnostic colonoscopy.
--- NOTE | 2024-09-03 08:07 | P.PCN_ITS ---
[facility] Procedure Note Date: 09/03/24 Time: 08:20 Procedure Note:: Colonoscopy Procedure Report: Colonoscopy with cold biopsies Endoscopist: Maxime Ortiz II, MD Referring physician: Estrada Carrizales DO Date of Procedure: September 03, 2024 Equipment: Olympus 190 variable stiffness pediatric colonoscope Sedation: MAC sedation Indication: Mrs. Bowen is a 73-year-old female who is here for diagnostic colonoscopy secondary to frequent diarrhea, loose stools and infrequent fecal incontinence. She does have a lot of bloating and gassiness. She did have sigmoid resection for complicated diverticulitis 10 years ago or more. She reports no rectal bleeding, weight loss or family history of colon cancer. She is uncertain when her last colonoscopy was and there is no reports in the [facility] system. Procedure: Prior to the procedure, a history and physical exam was performed, and patient's medications and allergies were reviewed. The risks, benefits and alternatives of the sedation and procedure were discussed with the patient. All questions were answered and informed consent was obtained. The patient was brought to the procedure room. Patient identification and proposed procedure were verified by the physician and the nurse. The patient was placed in a left lateral decubitus position and the scope was passed under direct vision. Throughout the procedure, the patient's blood pressure, pulse, and oxygen saturations were monitored continuously. The colonoscopy was accomplished without difficulty. The patient tolerated the procedure well. Findings: On digital rectal examination there was normal rectal tone. There were no external hemorrhoids. The colonoscope was introduced through the anal canal to the rectum and advanced to the cecum. The ileocecal valve and appendiceal orifice were identified. The scope was advanced a short distance into the ileum which appeared grossly normal. The scope was then withdrawn into the colon. The cecum, ascending, transverse and descending colon were grossly normal. Cold biopsies were taken from the right colon to rule out microscopic colitis. The colocolonic anastomosis was normal in appearance and widely patent. There were no mucosal abnormalities identified. Upon retroflexion within the rectum there were grade 2 internal hemorrhoids. The preparation was excellent throughout with [place] Preparation Score of 9. The cecal time was 10 minutes. Impression: 1. Normal colonoscopy with intubation of the terminal ileum 2. Normal colocolonic anastomosis from prior LAR 3. Grade 2 internal hemorrhoids Plan: I will follow-up the biopsies to rule out microscopic colitis. We will discuss additional treatment options. The patient should not require any further preventive/surveillance colonoscopy.
[2024-09-03 08:25] VITALS: BP 118/72; PULSE 76; RESP 16; TEMP 36.1; O2SAT 95
[2024-09-03 08:35] VITALS: BP 115/67; PULSE 69; RESP 16; O2SAT 95
[2024-09-03 08:45] VITALS: BP 130/67; PULSE 69; RESP 16; O2SAT 96
[2024-09-03 08:46] VITALS: BP 122/76; PULSE 59; RESP 16; O2SAT 98
[2024-09-08 14:17] LABS: Disclaimer Notes (.); Interpretation Notes (.); Lactase 57.68 (>/= 14.0); Maltase 336.51 (>/= 110.0); Palatinase 21.35 (>/= 8.5); Reference Notes (.); Sucrase 79.43 (>/= 25.0)
== END 2024-09-03 08:55 | disposition home or self-care (01) ==
PROVIDERS: PCP Internal Medicine; Visit Provider Internal Medicine Gastroenterology
PROC: 0DJ08ZZ Inspection of Upper Intestinal Tract, Via Natural or Artificial Opening Endoscopic (ICD-10-PCS; CPT 45378; principal; 2024-09-03 08:00)
DX: R19.7 Diarrhea, unspecified (principal); R11.10 Vomiting, unspecified; K22.89 Other specified disease of esophagus; K21.9 Gastro-esophageal reflux disease without esophagitis; R13.10 Dysphagia, unspecified; R15.2 Fecal urgency; R14.0 Abdominal distension (gaseous); Z90.49 Acquired absence of other specified parts of digestive tract; Z80.0 Family history of malignant neoplasm of digestive organs; J39.2 Other diseases of pharynx; K22.4 Dyskinesia of esophagus; K31.9 Disease of stomach and duodenum, unspecified; D13.2 Benign neoplasm of duodenum; K64.1 Second degree hemorrhoids; Z87.891 Personal history of nicotine dependence; Z92.3 Personal history of irradiation
CPT/HCPCS: 43239; 43249; 45380; 82657; C1726; J2704; J7120

== ENCOUNTER 2025-01-14 13:15 | Outpatient (CLI) | payer MEDICARE, OTHER, SELFPAY ==
--- OUTSIDE RECORDS SUMMARY | 2025-01-14 13:33 | XMS_ITS | Clinical Summary ---
Author Organization [facility] Address [address] [place] [address] Care Team Providers Care Gill Tender Name Role Phone Unavailable Primary Care Provider Unavailabl e Allergies Active Allergy Reactions Criticality Noted Date Comments Codeine Rash Low 02/06/2023 Latex Rash Low 02/06/2023 Morphine Unknown - Patient st ates they do not know rxn details Low 02/06/2023 Sulfa Drugs Nausea 02/06/2023 Medications LORazepam (Ativan) 0.5 MG tablet Please take 1 tablet 1 hour before the MRI 2 tablet 02/08/2023 Active Active Problems Problem Noted Date Diagnosed Date Malignant neoplasm of upper- inner quadrant of right breast in female, estrogen receptor negative 02/06/2023 Cancer Staging:Clinical:Stage IB(cT1, cN0, cM0, G2, ER-, WV-, HER2-) - Signed by Zach Alcantara MD on 02/06/2023 Social History Tobacco Use Types Packs/Day Years Used Date Smoking Tobacco: Former Cigarettes - 2007 Smokeless Tobacco: Never Tobacco Cessation:Counseling Given: Not Answered Alcohol Use Standard Drinks/Week Comments Not Currently 0 (1 standard drink = 0.6 oz pur e alcohol) Comments Unknown Sex and Gender Information Value Date Recorded Sex Assigned at Not on file Legal Sex Female 8:54 PM EDT Gender Identity Not on file Sexual Orientation Not on file Last Filed Vital Signs Vital Sign Reading Time Taken Comments Blood Pressure 138/92 02/06/2023 1:13 PM EDT Pulse 74 02/06/2023 1:13 PM EDT Temperature 36.8 C (98.3 F) 02/06/2023 1:13 PM EDT Respiratory Rate - - Oxygen Saturation 98% 02/06/2023 1:13 PM EDT Inhaled Oxygen Concentration - - Weight 71.5 kg (157 lb 11.2 oz) 02/06/2023 1:13 PM EDT Height - - Body Mass Index - - Plan of Treatment Health Maintenance Due Date Last Done Comments [facility]-Bone Density Scan 1950 [facility]-Depression Screening 1950 [facility]-Hepatitis C Screening 1950 [facility]-Medicare Annual Wellness (AWV) 1950 [facility]-/Child/Adol SDOH Screenings 1950 [facility]- SDOH Screenings 12/03/1967 [facility]-Adult SDOH Screenings 12/03/1967 [facility]-DTaP,Tdap,and Td Vaccines (1 - Tdap) 1968 [facility]-Pneumococcal Vaccine: 50+ Years (1 of 2 - PCV) 1968 [facility]-Zoster Vaccines (1 of 2) 1968 CT Colonography 1994 Colonoscopy 1994 FIT-DNA 1994 FIT 1994 FOBT 1994 Sigmoidoscopy 1994 [facility]-Colorectal Cancer Screening 1994 [facility]-RSV Vaccine: 60+ Years or (1 - 1-dose 75+ series) 2024 [id number] Vaccine (2024- season) 2024 01/25/2023, 01/25/2022, 09/09/2021, Additional history exists [facility]-Influenza Vaccine (#1) 12/29/202401/15, 01/05/2022, 01/21/2021, Additional history exists [facility]-Breast Cancer Screening Discontinued 01/10/2024 HPV Vaccines Aged Out No longer eligi ble based on patient's age to complete this topic [facility]-HIB Vaccines Aged Out No longer e ligible based on patient's age to complete this topic [facility]-Hepatitis A Vaccines Aged Out No longer eligible based on patient's age to complete this topic [facility]-IPV Vaccines Aged Out No longer e ligible based on patient's age to complete this topic [facility]-Rotavirus Vaccines Aged Out No lo nger eligible based on patient's age to complete this topic Procedures Procedure Name Priority Date/Time Associated Diagnosis Comments MAMMOGRAPHY BREAST DIAGNOSTIC TOMOSYNTHESIS BILATERAL 01/10/2024 9:15 AM EDT from Last 3 Months or Most Recently Relevant to Health Maintenance Results * Mammography Breast Diagnostic Tomosynthesis Bilateral (01/10/2024 9:15 AM EDT) Anatomical Region Laterality Modality Breast Bilateral Mammography 01/10/2024 9:15 AM EDT Narrative 01/10/2024 9:38 [place] [id number] Patient Name: MALIA BOWEN Patient : 1950 Age: 73 years Patient Ordering Provider: GILDARDO GUDINO EXAM DATE: 01/10/2024 EXAM: MG SHIRA DIAG DL MAMMOGRAM INDICATION: 73-year-old female with history of right breast malignancy status post lumpectomy and sentinel node biopsy deferred T1 N0 triple negative breast cancer February 2023. PROCEDURE: Multislice imaging of the both breasts was performed using [employer] tomosynthesis equipment (3D mammography). 2D images were created from the 3D dataset using C-View software. Images were evaluated with the assistance of Computer Aided Detection (CAD) software. COMPARISON: This is compared with prior mammograms dated back to 2022 FINDINGS: The breasts are heterogeneously dense, which may obscure small masses. Stable post lumpectomy changes present in the upper outer quadrant right breast and right axilla. No new mass, area of architectural distortion or suspicious calcification is identified in either breast. IMPRESSION: Stable postsurgical/posttreatment changes right breast and right axilla. BI-RADS Category 2, Benign finding, routine follow-up. The patient has been entered into an automated reminder system. COMMENT: Findings and recommendations were discussed with the patient. Interpreted By: Cookie Scanlon MD Procedure Note Cookie Scanlon MD - 01/10/2024 [place] [id number] Patient Name: MALIA BOWEN Patient : 1950 Age: 73 years Patient Ordering Provider: GILDARDO GUDINO EXAM DATE: 01/10/2024 EXAM: MG SHIRA VELASQUEZ DL MAMMOGRAM INDICATION: 73-year-old female with history of right breast malignancy status post lumpectomy and sentinel node biopsy deferred T1 N0 triple negative breast cancer February 2023. PROCEDURE: Multislice imaging of the both breasts was performed using [employer] tomosynthesis equipment (3D mammography). 2D images were created from the 3D dataset using C-View software. Images were evaluated with the assistance of Computer Aided Detection (CAD) software. COMPARISON: This is compared with prior mammograms dated back to 2022 FINDINGS: The breasts are heterogeneously dense, which may obscure small masses. Stable post lumpectomy changes present in the upper outer quadrant right breast and right axilla. No new mass, area of architectural distortion or suspicious calcification is identified in either breast. IMPRESSION: Stable postsurgical/posttreatment changes right breast and right axilla. BI-RADS Category 2, Benign finding, routine follow-up. The patient has been entered into an automated reminder system. COMMENT: Findings and recommendations were discussed with the patient. Interpreted By: Cookie Scanlon MD Gildardo Gudino MD IMG BI PROCEDURES Final Result from Last 3 Months or Most Recently Relevant to Health Maintenance Insurance [employer]ARE [employer]
--- OUTSIDE RECORDS SUMMARY | 2025-01-14 13:33 | XMS_ITS | Clinical Summary ---
[facility] Organization [facility] Address [address] [place] [address] Care Team Providers Care Nuclear Operations Specialist Name Role Phone Estrada Carrizales DO Primary Care Provider + Allergies Active Allergy Reactions Criticality Noted Date Comments Codeine Swelling High 01/30/2017 Latex Rash Low 01/30/2017 Hydrocodone-Acetaminophe n Hives Medium 12/22/2021 Morphine And Codeine Swelling High 01/30/2017 Other Other (See Comments) Medium 01/30/2017 Metal clamps; reports having an allergy to different metals but does not have a reaction to titanium Glycopyrrolate Hives Medium 01/30/2017 Sulfa Antibiotics Nausea And Vomiting Medium 7 Medications POTASSIUM CHLORIDE ER PO Take 99 mg by mouth Daily. Active CALCIUM-VITAMIN D PO Take 2 tablets by mouth Take As Directed. Calcium + D ([phone] G-IU Capsule Active Coenzyme Q10 (COQ-10) 200 MG capsule Take 1 tablet by mouth Take As Directed. Active vitamin C (ASCORBIC ACID) 500 MG tablet Take 2 tablets by mouth Daily. Active citalopram (CeleXA) 20 MG tablet Take 1 tablet by mouth Daily. Active simvastatin (ZOCOR) 40 MG tablet Take 1 tablet by mouth Every Morning. 0 01/08/2017 Active fenofibrate 160 MG tablet Take 1 tablet by mouth Daily. 10/24/2021 Active lisinopril (PRINIVIL,ZESTR IL) 10 MG tablet Take 1 tablet by mouth Every Morning. 11/28/2021 Active Venetia-3 Fatty Acids (fish oil) 1200 MG capsule capsule Take 2 capsules by mouth Daily With Breakfast. Active pantoprazole (PROTONIX) 40 MG EC tablet Take 1 tablet by mouth Daily. Active levothyroxine (SYNTHROID, LEVOTHROID) 88 MCG tablet Take 1 tablet by mouth Every Morning. 03/13/2022 Active multivitamin with minerals tablet tablet Take 1 tablet by mouth Daily. Active Cholecalciferol (Vitamin D3) 50 MCG (2000 UT) tablet Take 2 tablets by mouth Daily. Active acetaminophen (TYLENOL) 500 MG tablet Take 2 tablets by mouth Every 8 (Eight) Hours. Active docusate sodium 100 MG capsule TAKE 1 CAPSULE BY MOUTH 2 TIMES DAILY Active levocetirizine (XYZAL) 5 MG tablet Take 1 tablet by mouth Every Evening. Active Active Problems Problem Noted Date Diagnosed Date Acute postoperative pain 06/07/2022 Acute blood loss anemia, mild, asymptomatic 11/2022 Primary osteoarthritis of right hip 06/06/2022 Status post total hip replacement, right 023 HTN (hypertension) 06/06/2022 Hyperlipidemia 06/06/2022 Obesity 06/06/2022 Anxiety 06/06/2022 Arthritis of right hip 01/15/2022 Family History Medical History Relation Name Comments Hypertension Father Rheum arthritis Father Depression Mother Osteoarthritis Mother Rheum arthritis Mother Cancer Other 1 Grandparent Heart attack Other 1 Grandparent Heart disease Other 1 Grandparent Hypertension Other 1 Grandparent Rheum arthritis Other 1 Grandparent Stroke Other 1 Grandparent Hypertension Other 2 Sibling Rheum arthritis Other 2 Sibling Relation Name Status Comments Father Mother Other 1 Grandparent Other 2 Sibling Social History Tobacco Use Types Packs/Day Years Used Date Smoking Tobacco: Former Cigarettes 1 30 0 04/30/1970 - 04/30/2000 Smokeless Tobacco: Never Alcohol Use Standard Drinks/Week Comments Not Currently 1 (1 standard drink = 0.6 oz pur e alcohol) AUDIT-C Answer Date Recorded Q1: How often do you have a drink containing alcohol? Never 06/06/2022 Q2: How many drinks containi ng alcohol do you have on a typical day when you are drinking? Patient does not drink Q3: How often do you have si x or more drinks on one occasion? Never 06/06/2022 Abuse Screen Answer Date Recorded Unsafe at Home or Work/School Not on file Feels Threatened by Someone? Not on file 12/2023 Does Anyone Keep You from Co ntacting Others or Doint Things Outside the Home? Not on file 06/08/2023 Physical Sign of Abuse Present Not on file 0 06/08/2023 Housing Stability Answer Date Recorded Current Living Arrangements Not on file 12/2023 Potentially Unsafe Housing Conditions Not on serena e 06/08/2023 Family and Community Support Answer [place] e Recorded Help with Day-to-Day Activities Not on file 02/05/2023 Lonely or Isolated Not on file 02/05/2023 Employment Answer Date Recorded Do you want help finding or keeping work or a sonia b? Not on file 02/05/2023 Disabilities Answer Date Recorded Concentrating, Remembering, or Making Decisions Difficulty Not on file 06/08/2023 Doing Errands Independently Difficulty Not on fi le 06/08/2023 Education Answer Date Recorded Help with school or training? Not on file Preferred Language Not on file 06/06/2023 Comments No Sex and Gender Information Value Date Recorded Sex Assigned at Female 08/15/2022 11:58 AM EDT Legal Sex Female 11:26 AM EDT Gender Identity Female 08/15/2022 11:58 AM EDT Sexual Orientation Straight 08/15/2022 11 :58 AM EDT Last Filed Vital Signs Vital Sign Reading Time Taken Comments Blood Pressure 104/66 06/18/2023 9:45 AM EST Pulse 89 06/07/2022 6:02 AM EST Temperature 36.5 C (97.7 F) 07/05/2022 10:21 AM EST Respiratory Rate 20 06/07/2022 7:43 AM EST Oxygen Saturation 92% 06/07/2022 4:28 AM EST Inhaled Oxygen Concentration - - Weight 75.5 kg (166 lb 6.4 oz) 06/18/2023 9:45 A M EST Height 160 cm (5' 3 ) 06/18/2023 9:45 AM EST Body Mass Index 29.48 06/18/2023 9:45 AM EST Plan of Treatment Health Maintenance Due Date Last Done Comments DXA SCAN 1950 LIPID PANEL 1950 TDAP/TD VACCINES (1 - Tdap) 1968 COLOGUARD 1994 COLON CANCER SCREENING 5 YEA Morgan SIGMOIDOSCOPY 1994 COLONOSCOPY [address] CANCER SCREENING [address] COLONOGRAPHY 1994 FECAL OCCULT BLOOD TEST 1994 FIT Testing (1 year) 1994 Pneumococcal Vaccine 50+ (1 of 1 - PCV) 12/03/1999 ZOSTER VACCINE (1 of 2) 12/03/1999 ANNUAL WELLNESS VISIT 01/30/2017 HEPATITIS C SCREENING 01/30/2017 RSV Vaccine - Adults (1 - 1- dose 75+ series) 2024 COVID-19 Vaccine (2024-2 6 season) 2024 01/25/2023, 01/25/2022, 09/09/2021, Additional history exists INFLUENZA VACCINE 01/28/2025 01/15/2023, , 01/21/2021, Additional history exists MAMMOGRAM Discontinued 01/10/2024, 12/29, 02/14/2023, Additional history exists Medical Devices Implanted Type Area Flexible Babysitter Device Identifier Shelf Expiration Date Model / Serial / Lot Dev Contrl Tiss Stratafix Symm Pds Plus Krystin Ct-1 45cm - [id number] Implanted:Qty: 1 on 06/06/2022 by Ash Bauman MD at [facility] Implant Right: Hip [employer] DIV [employer] J AND J 07/29/2023 [id number] / / [id number] Dev Contrl Tiss Stratafix Spiral Mncryl Ud 3/0 Pls 60cm - [id number] Implanted:Qty: 1 on 06/06/2022 by Ash Bauman MD at [facility] Implant Right: Hip [employer] ENDO SURGERY DIV OF J AND J 10/28/2023 [id number] / / [id number] Shll Acet R3 3h Std 52mm - [id number] Implanted:Qty: 1 on 06/06/2022 by Ash Bauman MD at [facility] Implant Right: Hip MARIE [employer] NEPHEW 12/07/2031 [id number] / / [id number] Liner Acet R3 Xlpe 0d 77t78ow - [id number] Implanted:Qty: 1 on 06/06/2022 by Ash Bauman MD at [facility] Implant Right: Hip MAR[employer] NEPHEW 04/14/2032 [id number] / / [id number] Scrw Sph Hd Reflection 6.5x25mm - [id number] Implanted:Qty: 1 on 06/06/2022 by Ash Bauman MD at [facility] Implant Right: Hip [employer]HEW 11/11/2031 [id number] / / [id number] Stem Fem/Hip Polarstem W/Colr Std Sz2 - [id number] Implanted:Qty: 1 on 06/06/2022 by Ash Bauman MD at [facility] Implant Right: Hip MAR[employer]HEW 12/13/2028 [id number] / / [id number] Hd Fem/Hip Bioloxdelta R3 04/12 Md 36mm Pls4 - [id number] Implanted:Qty: 1 on 06/06/2022 by Ash Bauman MD at [facility] Implant Right: Hip [employer] NE[employer]HEW 05/27/2031 [id number] / / [id number] Totl Hip Tristin Marie Nephew - [id number] Implanted:Qty: 1 on 06/06/2022 by Ash Bauman MD at [facility] Implant Right: Hip MAR[employer] NE[employer]HEW CAPHIPTOTAL SN2 / / Hip Procedures Procedure Name Priority Date/Time Associated Diagnosis Comments MAMMO OUTSIDE FILMS Routine 02/14/2023 8 :51 AM EDT H/O mammogram from Last 3 Months or Most Recently Relevant to Health Maintenance Results * MAMMO Outside Films (02/14/2023 8:51 AM EDT) Narrative SYSTEMGENERATED, DOCUMENTATION - 02/14/2023 8:51 AM EDT This procedure was auto-finalized with no dictation required. us Gildardo Kurtz MD IMG MAMMOGRAPHY ORDERABLES Fin al Result from Last 3 Months or Most Recently Relevant to Health Maintenance Insurance MEDICARE A & B [employer] [facility] Advance Directives * CPR (Attempt to Resuscitate) (Latest Code Status on File) Date Activated Date Inactivated Comments 06/06/2022 5:56 PM 06/07/2022 2:44 PM Question Answer Comments Code Status (Patient has no pulse and is not breathing): CPR (Attempt to Resuscitate) Medical Interventions (Patie nt has pulse or is breathing): Full Support Release to patient: Routine Release Care Teams Nuclear Operations Specialist Relationship Specialty Start Date End Date Estrada Carrizales DO [address] [place] [id number] PCP - General Internal Medicine 02/27/23
--- NOTE | 2025-01-14 13:45 | MM_ITS ---
PROCEDURE INFORMATION: Exam: MG Bilateral Screening 3D Mammography Exam date and time: 01/14/2025 1:42 PM Age: 74 years old Clinical indication: Screening examination; Personal history of right breast cancer; Lumpectomy and radiation therapy and chemotherapy TECHNIQUE: Imaging protocol: Bilateral Screening tomosynthesis and 2D mammography including computer-aided detection (CAD) when performed. COMPARISON: 1. MG SHIRA DIAG DL MAMMOGRAM 01/10/2024 9:10 AM 2. MG MM CLIP PLACEMENT RT 01/26/2023 9:40 AM FINDINGS: MAMMOGRAPHY: Breast composition: There are scattered areas of fibroglandular density. Mass: None. Architectural distortion: Normal postlumpectomy changes are seen on the right including post surgical distortion, benign-type calcifications, parenchymal density, and skin thickening. Calcifications: No suspicious calcifications. Asymmetric density: None. Skin thickening: None. Axillary adenopathy: None. IMPRESSION: No mammographic evidence of malignancy. Annual screening is recommended unless otherwise clinically indicated. ASSESSMENT: BI-RADS Category 2: Benign.
== END 2025-01-14 23:59 | disposition home or self-care (01) ==
LOC: RAD 13:16
PROVIDERS: PCP Internal Medicine; Visit Provider Internal Medicine Medical Oncology
DX: Z12.31 Encounter for screening mammogram for malignant neoplasm of breast (principal); R92.323 Mammographic fibroglandular density, bilateral breasts; Z85.3 Personal history of malignant neoplasm of breast; Z90.11 Acquired absence of right breast and nipple; Z92.3 Personal history of irradiation; Z92.21 Personal history of antineoplastic chemotherapy
CPT/HCPCS: 77063; 77067

== ENCOUNTER 2025-04-17 12:09 | Emergency (ER) | payer MEDICARE, OTHER, SELFPAY ==
--- NOTE | 2025-04-17 12:07 | ECG_ITS ---
APPROVED REPORT Exam: Resting ECG HR:87 bpm ECG Measurements Heart Rate 87 AXES ME 183 P 74 QRSd 87 QRS 54 QT 379 T 74 QTc 424 Conclusion SINUS RHYTHM LOW QRS VOLTAGE IN PRECORDIAL LEADS [QRS DEFLECTION < 1.0 mV IN CHEST LEADS] BORDERLINE ECG UNCONFIRMED REPORT Electronically signed by : Luis Kurtz, 04/17/2025 15:17:56
[2025-04-17 12:14] VITALS: BP 154/86; PULSE 124; RESP 20; TEMP 36.7; O2SAT 98; BMI 34.7
--- NOTE | 2025-04-17 12:20 | XR_ITS ---
FINAL REPORT CLINICAL HISTORY: Nonspecific chest pain COMPARISON: 10 hours prior FINDINGS: The heart size is normal. The mediastinum is normal. There is no focal infiltrate or edema. There are no pleural effusions. There is no pneumothorax. There is no osseous abnormality. IMPRESSION: No acute cardiopulmonary process Reviewed, Interpreted and Dictated by Pedro Fletcher MD Transcribed by Lamar Garcia Authenticated and . [facility]
--- OUTSIDE RECORDS SUMMARY | 2025-04-17 12:25 | XMS_ITS | Clinical Summary ---
[facility] Address [address] [place] [address] Care Team Providers Care Nozzle Operator Name Role Phone Estrada Carrizales DO Primary [...] mouth Take As Directed. Calcium + D ([phone] G-IU Capsule Active Coenzyme Q10 (COQ-10) 200 [...] tablet by mouth Every Morning. 11/28/2021 Active Marion-3 Fatty Acids (fish oil) 1200 MG capsule [...] WELLNESS VISIT 01/30/2017 HEPATITIS C SCREENING 01/30/2017 INFLUENZA VACCINE 11/28/2024 01/15/2023, , 01/21/2021, Additional history exists RSV Vaccine - Adults (1 - 1- dose 75+ series) 2024 COVID-19 Vaccine (2024-2 6 season) 2024 01/25/2023, 01/25/2022, 09/09/2021, Additional history exists MAMMOGRAM Discontinued 01/10/2024, 12/29, 02/14/2023, Additional history exists Medical Devices Implanted Type Area Wardrobe Mistress Device Identifier Shelf Expiration Date Model / Serial / Lot Dev Contrl Tiss Stratafix Symm Pds Plus Krystin Ct-1 45cm - [id number] Implanted:Qty: 1 on 06/06/2022 by [facility]uman MD at [facility] Implant Right: Hip [employer] DIV [employer] J AND J 07/29/2023 [id number] / / [id number] Dev Contrl Tiss Stratafix Spiral Mncryl Ud 3/0 Pls 60cm - [id number] Implanted:Qty: 1 on 06/06/2022 by Ash Bauman MD at [facility] Implant Right: Hip [employer] ENDO SURGERY DIV OF J AND J 10/28/2023 [id number] / / [id number] Shll Acet R3 3h Std 52mm - [id number] Implanted:Qty: 1 on 06/06/2022 by Ash Bauman MD at [facility] Implant Right: Hip MARIE [employer] NEPHEW 12/07/2031 [id number] / / [id number] Liner Acet R3 Xlpe 0d 44j16ve - [id number] Implanted:Qty: 1 on 06/06/2022 by Ash Bauman MD at [facility] Implant Right: Hip MAR[employer] NEPHEW 04/14/2032 [id number] / / [id number] Scrw Sph Hd Reflection 6.5x25mm - [id number] Implanted:Qty: 1 on 06/06/2022 by Ash Bauman MD at [facility] Implant Right: Hip [employer]HEW 11/11/2031 [id number] / / [id number] Stem Fem/Hip Polarstem W/Colr Std Sz2 - [id number] Implanted:Qty: 1 on 06/06/2022 by Ash Bauman MD at [facility] Implant Right: Hip [employer]HEW 12/13/2028 [id number] / / [id number] Hd Fem/Hip Bioloxdelta R3 04/12 Md 36mm Pls4 - [id number] Implanted:Qty: 1 on 06/06/2022 by Ash Bauman MD at [facility] Implant Right: Hip MAR[employer] NEPHEW 05/27/2031 [id number] / / [id number] Totl Hip Tristin Marie Nephew - [id number] Implanted:Qty: 1 on 06/06/2022 by Ash Bauman MD at [facility] Implant Right: Hip MARIE AND [...] Maintenance Insurance MEDICARE A & B [facility] Advance Directives * CPR (Attempt to Resuscitate) (Latest Code Status on File) Date Activated Date Inactivated Comments 06/06/2022 5:56 PM 06/07/2022 2:44 PM Question Answer Comments Code Status (Patient has no pulse and is not breathing): CPR (Attempt to Resuscitate) Medical Interventions (Patie nt has pulse or is breathing): Full Support Release to patient: Routine Release Care Teams Nozzle Operator Relationship Specialty Start Date End Date Estrada Carrizales DO [address] [place] [address] PCP - General Internal Medicine 02/27/23
--- OUTSIDE RECORDS SUMMARY | 2025-04-17 12:25 | XMS_ITS | Clinical Summary ---
Author Organization [facility] Address [address] [place] [address] Care Team Providers Care Hvac Residential Service Technician Name Role Phone Unavailable Primary Care Provider [...] Cancer Staging:Clinical:Stage IB(cT1, cN0, cM0, G2, ER-, IA-, HER2-) - Signed by Zach Alcantara MD [...] Screening 1950 [facility]-Medicare Annual Wellness (AWV) 1950 [facility]-Infant/Child/Adol SDOH Screenings 1950 [facility]- SDOH Screenings 12/03/1967 [facility]-Adult SDOH Screenings 12/03/1967 [facility]-DTaP,Tdap,and Td Vaccines (1 - Tdap) 1968 [facility]-Pneumococcal Vaccine: 50+ Years (1 of 2 - PCV) 1968 [facility]-Zoster Vaccines (1 of 2) 1968 CT Colonography 1994 Colonoscopy 1994 FIT-DNA 1994 FIT 1994 FOBT 1994 Sigmoidoscopy 1994 [facility]-Colorectal Cancer Screening 1994 [facility]-RSV Vaccine: 60+ Years or (1 - 1-dose 75+ series) 2024 [id number] Vaccine (2024- season) 2024 01/25/2023, 01/25/2022, 09/09/2021, Additional history exists [facility]-Influenza Vaccine (#1) 12/29/202401/15, 01/05/2022, 01/21/2021, Additional history exists [facility]-Breast Cancer Screening Discontinued 01/10/2024 HPV Vaccines (No Doses Required) Completed [facility]-HIB Vaccines Aged Out No longer e [...] AM EDT Narrative 01/10/2024 9:38 [place] [address] Patient Name: MALIA BOWEN Patient : 1950 Age: 73 years Patient Ordering Provider: GILDARDO GUDINO EXAM DATE: 01/10/2024 EXAM: MG SHIRA DIAG DL MAMMOGRAM INDICATION: 73-year-old female with history of right breast malignancy status post lumpectomy and sentinel node biopsy deferred T1 N0 triple negative breast cancer February 2023. PROCEDURE: Multislice imaging of the both breasts was performed using [employer] tomosynthesis equipment (3D mammography). 2D images [...] Procedure Note Cookie Scanlon MD - 01/10/2024 [place] [address] Patient Name: MALIA BOWEN Patient : 1950 Age: 73 years Patient Ordering Provider: GILDARDO GUDINO EXAM DATE: 01/10/2024 EXAM: MG SHIRA VELASQUEZ DL MAMMOGRAM INDICATION: 73-year-old female with history of right breast malignancy status post lumpectomy and sentinel node biopsy deferred T1 N0 triple negative breast cancer February 2023. PROCEDURE: Multislice imaging of the both breasts was performed using [employer] tomosynthesis equipment (3D mammography). 2D images [...] Recently Relevant to Health Maintenance Insurance MEDICARE [facility]
[2025-04-17 12:28] LABS: Hematocrit 39.7 % (37.0-47.0); Hemoglobin 13.7 g/dL (12.2-16.2); Immature Granulocytes % 0.2 %; Mean Corpuscular HGB Conc 34.5 g/dL (31.8-35.4); Mean Corpuscular Hemoglobin 32.1 pg (27.0-31.2); Mean Corpuscular Volume 93.0 fl (81-99); Nucleated Red Blood Cells % 0 %; Platelet Count 293 K/mm3 (142-424); Red Blood Count 4.27 M/mm3 (4.20-5.40); Red Cell Distribution Width-SD 46.9 fL; White Blood Count 8.9 K/mm3 (4.8-10.8)
--- NOTE | 2025-04-17 12:28 | CT_ITS ---
FINAL REPORT TECHNIQUE: The patient was injected with IV contrast. Axial images were obtained through the chest in a PE protocol. 3-D reconstruction images were also performed. Individualized dose reduction techniques using automated exposure control or adjustment of the MA and/or KV according to patient's size were employed. CLINICAL HISTORY: h/o breast ca, right pleuritic cp, tachy COMPARISON: None FINDINGS: Mediastinal vasculature is adequately opacified. No pulmonary artery filling defects are identified to suggest PE. There is no aortic aneurysm or dissection. There is no axillary adenopathy. There is no hilar or mediastinal adenopathy. The heart size is normal. There is no pericardial or pleural effusion. There is a densely calcified subcarinal lymph node. Surgical clips are present in the right breast. There are calcified granulomas in the right upper lobe. The left lung is clear. Limited images of the upper abdomen demonstrate mild mucosal thickening of the distal esophagus. IMPRESSION: No pulmonary embolus, aneurysm, or dissection. Left mild mucosal thickening of the distal esophagus may be due to esophagitis. Reviewed, Interpreted and Dictated by Pedro Fletcher MD Transcribed by Lamar Garcia Authenticated and [facility]
[2025-04-17 12:29] LABS: Albumin Level 4.5 g/dl (3.5-5.0); Chloride 103 mmol/L (98-107); Potassium 3.6 mmoL/L (3.5-5.1); Sodium 139 mmol/L (136-145)
[2025-04-17 12:30] VITALS: BP 125/83; PULSE 114; RESP 23; O2SAT 97
[2025-04-17 12:31] LABS: Blood Urea Nitrogen 16 mg/dl (7-17); Creatinine Clearance Estimated 66 mL/min (50-200); Creatinine,Serum 0.90 mg/dl (0.52-1.04); Estimated Glomerular Filt Rate 61 ml/min (>60); GFR (African American) 74 ML/MIN (>60)
[2025-04-17 12:32] LABS: Alanine Aminotransferase 25 U/L (12-78); Albumin/Globulin Ratio 1.7 (1.1-1.8); Alkaline Phosphatase 43 U/L (38-126); Anion Gap 10.6 mEq/L (5-15); Aspartate Amino Transferase 30 U/L (14-36); Bilirubin,Total 0.5 mg/dl (0.2-1.3); Calcium 9.9 mg/dl (8.4-10.2); Carbon Dioxide 29 mmol/L (22.0-30.0); Globulin 2.7 g/dL (1.3-3.2); Glucose 147 mg/dl (74-100); Total Protein,Serum 7.2 g/dl (6.3-8.2)
--- NOTE | 2025-04-17 12:33 | [facility].EDGENADL ---
Discharge Plan Disposition Patient Disposition: Home, Self-Care Prescriptions Prescriptions: No Action cetirizine [Zyrtec] 10 mg tablet 10 mg PO DAILY lisinopril 10 mg tablet 10 mg PO DAILY Qty: 90 3RF bisoprolol fumarate 5 mg tablet 2.5 mg PO DAILY Qty: 90 1RF vitamin E mixed 400 unit capsule 0 unit PO DAILY Rx Instructions: UNKNOWN DOSE pantoprazole 40 mg tablet,delayed release (DR/EC) 40 mg PO DAILY PRN (Reason: GERD) simvastatin 40 mg tablet 40 mg PO DAILY calcium carbonate [Calcium 600] 600 mg calcium (1,500 mg) tablet 600 mg PO DAILY ascorbic acid (vitamin C) 1,000 mg capsule 2 g PO DAILY multivitamin Tablet 1 tab PO DAILY coenzyme Q10 [Co Q-10] 100 mg capsule 200 mg PO DAILY acetaminophen [Tylenol] 325 mg tablet 325 mg PO QID PRN (Reason: Pain (Scale Score 1-3)) potassium gluconate 595 mg (99 mg) tablet 595 mg PO DAILY omega-3 fatty acids-fish oil [Fish Oil] 360-1,200 mg capsule 1 cap PO BID cholecalciferol (vitamin D3) 50 mcg (2,000 unit) capsule 50 mcg PO DAILY levothyroxine 88 mcg tablet 88 mcg PO DAILY calcium polycarbophil [FiberCon] 625 mg tablet 1,250 mg PO DAILY budesonide 3 mg capsule,delayed,extend.release 9 mg PO .At bedtime Qty: 90 1RF Rx Instructions: Please take 3 capsules p.o. nightly fenofibrate 160 mg tablet See Rx Instructions .ROUTE .COMPLEX Qty: 90 3RF Dose Instruction: TAKE 1 TABLET BY MOUTH DAILY Rx Instructions: TAKE 1 TABLET BY MOUTH DAILY citalopram 20 mg tablet 20 mg PO DAILY Qty: 90 3RF Rx Instructions: TAKE 1 TABLET BY MOUTH DAILY Referrals Follow up/Referrals: Estrada Carrizales DO [Primary Care Provider, Family Practice] - See instructions Activity Restrictions/Add. Instructions Additional Instructions/Restrictions: There is no evidence of any acute cardiopulmonary emergency today specifically no evidence of a blood clot recurrence of cancer pneumonia etc. Your symptoms are most consistent with either a musculoskeletal strain or pleurisy. Anti-inflammatory medications may be taken such as ibuprofen or naproxen this should be self-limiting. Return to the emergency room with any significant worsening of her symptoms. Clinical Impressions Clinical Impression: Chest pain, pleuritic, History of breast cancer Print Language Print Language: [place] Discharge ED Provider: Mesfin Kurtz General Adult HPI General Chief complaint: Chest Pain Stated complaint: chest pain Time Seen by Provider: 04/17/25 12:11 Mode of Arrival: Ambulatory Source of Information: Patient Description of Symptoms (Recalled from ER Triage Doc. by RN): pt presents to ED with c/o chest pain. pt reports that last night after dinner she began to right sided chest pain. pt reports radiation into her shoulder blade on right side. pt reports hx of stroke. pt reports hx of breast cancer. History of Present Illness HPI narrative: Patient is a 74-year-old female presenting today with right-sided pleuritic chest pain which began yesterday around 6 PM and has been constant since that time. Has a history of breast cancer 2 years status post chemo and radiation. Has been in remission. Denies any fevers chills cough etc. States that pain is only worse with inspiration not worse with any food not worse with exertion she does not feel dyspneic at the moment. No fevers or chills. Related Data Home Medications ?Medication ?Instructions ?Recorded ?Confirmed acetaminophen 325 mg tablet 325 mg PO QID PRN Pain (Scale 12/14/22 01/20/25 (Tylenol) Score 1-3) ascorbic acid (vitamin C) 1,000 mg 2 g PO DAILY 12/14/22 01/20/25 capsule calcium carbonate (Calcium 600) 600 mg PO DAILY 12/14/22 01/20/25 coenzyme Q10 100 mg capsule (Co 200 mg PO DAILY 12/14/22 01/20/25 Q-10) multivitamin 1 tab PO DAILY 12/14/22 01/20/25 potassium gluconate 595 mg (99 mg) 595 mg PO DAILY 12/14/22 01/20/25 tablet simvastatin 40 mg tablet 40 mg PO DAILY 12/14/22 01/20/25 pantoprazole 40 mg tablet,delayed 40 mg PO DAILY PRN GERD 12/21/22 01/20/25 release levothyroxine 88 mcg tablet 88 mcg PO DAILY 03/07/23 01/20/25 cetirizine 10 mg tablet (Zyrtec) 10 mg PO DAILY 08/23/23 01/20/25 cholecalciferol (vitamin D3) 50 50 mcg PO DAILY 08/23/23 01/20/25 mcg (2,000 unit) capsule omega-3 fatty acids-fish oil 360 1 cap PO BID 08/23/23 01/20/25 mg-1,200 mg capsule (Fish Oil) vitamin E mixed 400 unit capsule 0 unit PO DAILY 07/02/24 01/20/25 calcium polycarbophil 625 mg 1,250 mg PO DAILY 12/10/24 01/20/25 tablet (FiberCon) Previous Rx's ?Medication ?Instructions ?Recorded bisoprolol fumarate 5 mg tablet 2.5 mg (1/2 x 5 mg) PO DAILY #90 05/15/24 tabs lisinopril 10 mg tablet 10 mg PO DAILY #90 tabs 05/15/24 budesonide 3 mg 9 mg (3 x 3 mg) PO .At bedtime #90 12/22/24 capsule,delayed,extended release ea fenofibrate 160 mg tablet See Rx Instructions .Route 01/02/25 .COMPLEX #90 tabs citalopram 20 mg tablet 20 mg PO DAILY #90 tabs 04/03/25 Allergies Allergy/AdvReac Type Severity Reaction Status Date / Time morphine Allergy Severe Anaphylaxis Verified 01/20/25 09:30 contact metal agent Allergy Intermediate Rash Verified 01/20/25 09:30 Latex, Natural Rubber Allergy Intermediate Rash Verified 01/20/25 09:30 glycopyrrolate (From ROBINUL) Allergy Unknown Rash Verified 01/20/25 09:30 Sulfa (Sulfonamide Allergy Unknown Vomiting Verified 01/20/25 09:30 Antibiotics) (SULFA (SULFONAMIDE ANTIBIOTICS)) acetaminophen (From Lortab) Allergy Rash Verified 01/20/25 09:30 codeine Allergy Rash Verified 01/20/25 09:30 hydrocodone (From Lortab) Allergy Rash Verified 01/20/25 09:30 PFSH PFS Disclaimer: The information contained in this section may have been updated after the patient was seen, as this information can be updated by other users. Medical History Hx of breast cancer History of fracture of tibia FH: bilateral hip replacements Hypothyroidism GERD (gastroesophageal reflux disease) Hyperlipidemia Hypertension Colonoscopy planned Hip replacement planned Urinary tract infection History of COVID-19 History of transient ischemic attack (TIA) Migraine Anxiety Depression Fibromyalgia Ulcerative colitis History of gastroesophageal reflux (GERD) History of cataract Hypothyroid Hyperlipidemia Hypertension Dyspnea Surgical History H/O lymph node biopsy H/O lumpectomy History of lumpectomy of right breast History of esophagogastroduodenoscopy (EGD) History of carpal tunnel release History of colon surgery History of H/O: hysterectomy Family History Mother Family history of Alzheimer's disease Grandfather Family history of acute congestive heart failure Family history of stroke Family history of cancer Grandmother Family history of acute congestive heart failure Family history of cancer Father Hypertension Mother Dementia Other Cancer Prostate cancer Social History Smoking Status: Never smoker alcohol intake: never substance use type: denies use current occupational status: retired Travel in the last 8 weeks?: None caffeine: Yes Have you lived/traveled outside [place] in past 30 days?: No Contact w/someone who lives/traveled outside [place] past 30 days?: No Exposure to someone with infectious disease in past 14 days?: No Do you have a fever (greater than 100.4 F or 38 C)?: No Have you tested positive for COVID-19?: No Exposed to someone with COVID-19 in past 14 days?: No Do you have a sore throat?: No Do you have a cough?: No Do you have any weakness?: No Do you have any diarrhea?: No Are you experiencing any unusual bleeding?: No Do you have any muscle aches/pain?: No Do you have any abdominal pain?: No Are you experiencing loss of taste or smell?: No Other Medical History Have you received the Flu Vaccine for this season: Yes Have you received the Pneumonia Vaccine: Yes ROS Obtained: Yes All systems reviewed & no additional complaints except as documented Physical Exam General General appearance: alert and in no apparent distress Respiratory Respiratory exam: Present normal lung sounds bilaterally and other (No acute tachypnea oxygen saturations normal on room air); Absent respiratory distress Cardiovascular Cardiovascular exam: Present tachycardia (Heart rate in the 120s and regular on my exam) Neurological Exam Neurological exam: Present alert and oriented X3 Medical Decision Making Medical Records Screening: Per USPSTF and CDC recommendations, given the prevalence of disease in our region, it is our hospital?s policy to screen for HIV and viral Hepatitis for all patients aged 18 and over and those with ongoing risk factors. Gideon Inquiry Pt receiving controlled substance: No Vital Signs: 04/17/25 12:14 04/17/25 12:30 04/17/25 13:00 Temperature 98.0 F Temperature Source Oral Pulse Rate 114 H 77 Pulse Rate [Left Radial] 124 H Respiratory Rate 20 23 18 Blood Pressure 125/83 111/63 Blood Pressure [Right Arm] 154/86 H Blood Pressure Mean [Right Arm] 108 02 Sat by Pulse Oximetry 98 97 94 L Oxygen Delivery Method Room Air 04/17/25 14:01 Temperature Temperature Source Pulse Rate 84 Pulse Rate [Left Radial] Respiratory Rate 19 Blood Pressure 154/83 H Blood Pressure [Right Arm] Blood Pressure Mean [Right Arm] 02 Sat by Pulse Oximetry 96 Oxygen Delivery Method Lab Data Lab results reviewed: Yes I reviewed the patient's lab results. Lab Results 04/17/25 12:10: WBC 8.9, RBC 4.27, Hgb 13.7, Hct 39.7, MCV 93.0, MCH 32.1 H, MCHC 34.5, RDW 13.6, Plt Count 293, MPV 8.9, Neut % (Auto) 62.2, Lymph % (Auto) 26.4, [place] % (Auto) 10.0 H, Eos % (Auto) 1.0, Baso % (Auto) 0.2, Neut # (Auto) 5.5, Lymph # (Auto) 2.4, [place] # (Auto) 0.9, Eos # (Auto) 0.1, Baso # (Auto) 0.0, Sodium 139, Potassium 3.6, Chloride 103, Carbon Dioxide 29, Anion Gap 10.6, BUN 16, Creatinine 0.90, Estimated Creat Clear 66, Estimated GFR 61, Est GFR ( Amer) 74, Glucose 147 H, Calcium 9.9, Total Bilirubin 0.5, AST 30, ALT 25, Alkaline Phosphatase 43, Troponin I < 0.01, Total Protein 7.2, Albumin 4.5, Globulin 2.7, Albumin/Globulin Ratio 1.7, Lipase 73, HCV Ab ALIYAH w/Rflx PCR Qn Negative 04/17/25 12:10 04/17/25 12:10 Orders (Tests/Meds): ED MEDICATIONS Generic Name Dose Route Start Last Admin Trade Name Scout PRN Reason Stop Dose Admin Sodium Chloride 10 ml 04/17/25 13:31 04/17/25 13:31 Sodium Chloride 0.9% 10ml Syr (Rad Only) IV 05/17/25 13:30 10 ml NEEDED PRN Administration Maintain IV Site Discontinued Medications Generic Name Dose Route Start Last Admin Trade Name Scout PRN Reason Stop Dose Admin Lactated Ringer's 1,000 mls @ 999 mls/hr 04/17/25 12:30 04/17/25 13:51 Lactated Ringer's 1000 Ml Bag IV 04/17/25 13:30 Infused .Q1H1M NIKKIE Infusion Iopamidol 70 ml 04/17/25 13:31 04/17/25 13:31 Iopamidol-370 (76%);100ml Bottle IV 04/17/25 13:32 70 ml ONCE ONE Administration Ketorolac Tromethamine 15 mg 04/17/25 12:28 04/17/25 12:40 Ketorolac 30mg/Ml Vial IV 04/17/25 12:29 15 mg ONCE ONE Administration Ondansetron HCl 4 mg 04/17/25 12:28 04/17/25 12:40 Ondansetron 4mg/2ml Vial IV 04/17/25 12:29 4 mg ONCE ONE Administration Sodium Chloride 50 ml 04/17/25 13:31 04/17/25 13:31 0.9 % Sodium Chloride 50 Ml Vial IV 04/17/25 13:32 50 ml ONCE ONE Administration ORDERS Category Date Time Status CT angio chest PE protocol Stat Cat Scan 04/17/25 12:28 Completed XR chest portable Stat Exams 04/17/25 12:20 Completed Complete Blood Count Auto Diff Stat Lab 04/17/25 12:10 Completed Comprehensive Metabolic Panel Stat Lab 04/17/25 12:10 Completed HIV Combo Routine Lab 04/17/25 12:10 Received Hepatitis C Ab Qual. W/ RFX Routine Lab 04/17/25 12:10 Completed Lipase Stat Lab 04/17/25 12:10 Completed Troponin I Q3H Lab 04/17/25 15:30 Ordered Troponin I Q3H Lab 04/17/25 18:30 Ordered Troponin I Stat Lab 04/17/25 12:10 Completed Medical Decision Narrative: 74-year-old history of cancer but in remission presenting today with pleuritic chest pain and tachycardia and first my differential right now would be a pulmonary embolism therefore we will proceed straight to a CAT scan. Other things that could be causing her symptoms would be musculoskeletal chest discomfort pleurisy pneumonia etc. CT scan will also help differentiate that further. Toradol Zofran IV fluids have been ministered will reassess shortly. EKG performed which I personally turbid shows a ventricular rate of 87 normal sinus rhythm no acute ischemic changes noted low voltage QRS. Of note patient was tachycardic into the 120s on my exam however. Reassessment 2:32 PM patient very stable labs unremarkable CT of the patient's chest performed which I personally interpreted which does not demonstrate any evidence of pulmonary embolism or intrathoracic pathology such as pneumonia recurrence of cancer etc. There is no radiographic evidence of an explanation of her symptoms. Working diagnosis at this point without any obvious cardiopulmonary emergency is musculoskeletal strain versus pleurisy. I do favor pleurisy symptomatic treatments and supportive care discussed patient also given return precautions. Of note radiology did read that there is thickening of the esophagus which may be associated with esophagitis. Patient does have chronic GERD has had a recent endoscopy and is currently being followed by GI doctor for this. Patient is discharged in improved and stable condition. Critical Care Critical Care Time Critical Care Time: No
[2025-04-17] MEDS: KETOROLAC 30MG/ML VIAL 15 MG IV (12:40)
[2025-04-17] MEDS: ONDANSETRON 4MG/2ML VIAL 4 MG IV (12:40)
[2025-04-17] MEDS: LACTATED RINGERS 1000ML 1,000 ML 999 ML IV (12:40)
[2025-04-17 12:49] LABS: Troponin I < 0.01 ng/ml (0.00-0.034)
[2025-04-17 12:51] LABS: Lipase 73 U/L (23-300)
[2025-04-17 13:00] VITALS: BP 111/63; PULSE 77; RESP 18; O2SAT 94
[2025-04-17] MEDS: IOPAMIDOL-370 (76%);100ML BOTTLE 70 ML IV (13:31)
[2025-04-17] MEDS: SODIUM CHLORIDE 0.9% 10ML SYR (RAD ONLY) 10 ML IV (13:31)
[2025-04-17] MEDS: 0.9 % SODIUM CHLORIDE 50 ML VIAL IV (13:31)
[2025-04-17 13:42] LABS: Hepatitis C Ab Qual. W/ RFX NEGATIVE (Negative)
[2025-04-17 14:01] VITALS: BP 154/83; PULSE 84; RESP 19; O2SAT 96
[2025-04-17 14:39] VITALS: BP 114/69; PULSE 75; RESP 16; TEMP 36.6; O2SAT 97
== END 2025-04-17 14:40 | disposition home or self-care (01) ==
PROVIDERS: Emergency Provider Student in an Organized Health Care Education/Training Program; PCP Internal Medicine
DX: R07.81 Pleurodynia (principal); I10 Essential (primary) hypertension; E78.5 Hyperlipidemia, unspecified; Z85.3 Personal history of malignant neoplasm of breast
CPT/HCPCS: 71045; 71275; 80053; 83690; 84484; 85025; 86803; 87389; 93005; 96361; 96374; 96375; 99285; J1885; J2405; J7120; Q9967